=== PATIENT | female | born 1955 | race Caucasian/White ===

== ENCOUNTER 2021-08-28 22:59 | Emergency (ER) | payer BC, SELFPAY ==
--- NOTE | ~2021-08-28 | XR_ITS ---
EXAMINATION: XR CHEST CLINICAL INFORMATION: Syncope COMPARISON: 10/26/2018 TECHNIQUE: Frontal view of the chest was obtained. FINDINGS: Lung volumes are symmetric. No focal consolidation is seen. No evidence of pneumothorax, pleural effusion, or pulmonary edema. The cardiomediastinal contour is unremarkable. Calcification is present at the aortic arch. No acute osseous findings are seen. XR/XR chest 1V IMPRESSION: No acute cardiopulmonary findings.
--- NOTE | ~2021-08-28 | CT_ITS ---
EXAMINATION: CT HEAD WITHOUT CONTRAST CLINICAL INFORMATION: Fall COMPARISON: None TECHNIQUE: Contiguous axial imaging was performed from the skull base to vertex without intravenous administration of contrast. This CT examination was performed using dose optimization techniques as appropriate, variously including the following: *Automated exposure control *Adjustment of mA and/or kV according to patient size (this includes techniques or standardized protocols for targeted exams where dose is matched to indication/reason for exam; i.e. extremities or head) *Use of iterative reconstruction technique DLP: 754 mGy-cm FINDINGS: There is no evidence of acute intracranial hemorrhage or territorial infarction. No abnormal mass effect or midline shift is seen. Kennedy to white matter differentiation is well preserved. No extra-axial fluid collections are identified. The ventricles are normal in size. Hypoattenuating focus is present in the right bradley radiata. The osseous structures and soft tissues are normal. The mastoid air cells and visualized portions of the paranasal sinuses are well aerated. CT/CT head/brain wo con IMPRESSION: No acute intracranial hemorrhage. Hypoattenuating focus in the right bradley radiata is more suggestive of a chronic lacunar infarct; if clinically warranted, acuity may be better assessed with MRI.
[2021-08-29 00:16] VITALS: BP 137/75; PULSE 90; RESP 16; TEMP 36.6; O2SAT 98; BMI 29.5
--- NOTE | 2021-08-29 00:23 | ECG_ITS ---
Test Reason : SYNCOPE Blood Pressure : / mmHG Vent. Rate : 085 BPM Atrial Rate : 085 BPM P-R Int : 214 ms QRS Dur : 150 ms QT Int : 430 ms P-R-T Axes : 042 -67 018 degrees QTc Int : 511 ms Sinus rhythm with 1st degree A-V block Right bundle branch block Left anterior fascicular block Bifascicular block Abnormal ECG No previous ECGs available Referred By: Generic ED Physician Electronically Signed By:SCOTTIE RAMOS MD
--- NOTE | 2021-08-29 00:48 | ED.SYNCOPE ---
HPI - Syncope General Chief Complaint: Syncope Stated Complaint: Fell Hit Head 08/28/21 Time Seen by Provider: 08/29/21 00:30 Source: patient Mode of arrival: ambulatory Limitations: no limitations History of Present Illness HPI narrative: Patient comes to the emergency room complaining of a syncopal episode. Patient states that she remembers she was washing her hands at the kitchen before eating dinner, the next thing she remembers is her family waking her up, patient lying down in the couch. The family reported to the patient that patient was washing hands, fell to the ground, possibly hit her head. They picked her up from the ground and put on the couch. Patient states that she did not have any chest pain or shortness of breath prior pain patient states that she suspects that she had possibly vertigo before which has happened to her but not with syncopal episode. At this time, patient has no vertigo, no chest pain or shortness of breath, patient states she is asymptomatic. Patient denies headache or neck pain. Related Data Allergies Allergy/AdvReac Type Severity Reaction Status Date / Time No Known Allergies Allergy Unverified 08/29/21 00:22 [No Known Allergies*] Review of Systems Review of Systems: Constitutional : No Weight loss, No Fever, No Chills, No Night Sweats, No Fatigue, No Malaise ENT/Mouth : No Hearing loss, No Ear Pain, No Nasal Congestion, No Sinus Pain, No Hoarseness, No sore throat, No Rhinorrhea, No Swallowing Difficulty Eyes: No Eye Pain, No Swelling, No Redness, No Foreign Body, No Discharge, No Vision Changes Cardiovascular : No Chest Pain, No SOB, No Dyspnea on Exertion, No Orthopnea, No Edema, No Palpitations Respiratory : No Cough, No Sputum, No Wheezing, No Smoke Exposure, No Dyspnea Gastrointestinal : No Nausea, No Vomiting, No Diarrhea, No Constipation, No abdominal Pain, No Hematochezia, No Melena Genitourinary : no irregular bleeding, No Dysuria, No Urinary Frequency, No Hematuria, No Urinary Incontinence, No Urgency, No Flank Pain, No Urinary Flow Changes, No Hesitancy Musculoskeletal : No joint pain, No Myalgias, No Joint Swelling Skin : No Skin Lesions, No rash Neuro : No Weakness, No Numbness, No Paresthesias, complaining of syncopal episode, No Dizziness, No Headache Psych : No Anxiety/Panic, No Depression, No SI/HI/AH/VH, No Social Issues, Heme/Lymph: No Bruising, No Bleeding,No Lymphadenopathy Endocrine : No Polyuria, No Polydipsia, No Temperature Intolerance [facility] Past Medical History Medical History Diabetes Hypertension Vertigo Social History Social History Advance Directives: No Advance Directives Information Provided: No Physical Exam Vital Signs: Vital Signs: Last Vital Signs Temp 97.9 F 08/29/21 00:16 Pulse 74 08/29/21 02:20 Resp 18 08/29/21 02:20 BP 150/76 H 08/29/21 02:20 Pulse Ox 98 08/29/21 02:20 BMI result Body Mass Index 29.5 Const: Other: Appearance: Alert. Oriented X3. No acute distress. Eyes: Pupils equal, round and reactive to light. ENT: Pharynx normal. Neck: Normal inspection. Neck supple. No lymph nodes noted. No crepitus CVS: Normal heart rate and rhythm. Pulses normal. Normal S1 and S2 Respiratory: No respiratory distress. Breath sounds normal. No Wheezing. No rales Abdomen: Soft and nontender. No rigidity. No distention. good BS x4 Skin: Skin warm and dry. Normal skin color. Normal skin turgor. Extremities: No lower extremity edema.No Lacerations. No Rash Neuro: Oriented X 3. No motor deficit. No sensory deficit. Moving all extermities. No slurred speech. Course Course Course Narrative: Patient remains asymptomatic, no acute findings. Orthostatic vitals negative. I discussed the CT with the patient, patient will talk to her primary care doctor about getting an MRI if needed. Patient has no neurological deficits. To patient's knowledge she has never had a stroke. I also discussed with the patient that she will likely benefit from Holter monitoring and stress test. MDM - Syncope Lab Data Result diagrams: 08/29/21 00:46 08/29/21 00:46 Labs: Lab Results 08/29/21 08/29/21 08/29/21 Range/Units 00:46 00:46 00:46 WBC 7.0 (4.8-10.8) X10*3/uL RBC 3.85 L (4.20-5.50) X10*6/uL Hgb 11.3 L (12.0-16.0) g/dl Hct 35.6 L (37.0-47.0) % MCV 92.5 (80.0-98.0) fL MCH 29.4 (27.0-33.0) pg MCHC 31.7 (31.0-35.0) g/dl RDW 14.2 (11.0-16.0) % Plt Count 169 (160-400) X10*3/uL MPV 10.4 (9.4-12.3) fL Immature Gran % (Auto) 0.1 (0.0-0.4) % Neut % (Auto) 65.7 (45-73) % Lymph % (Auto) 24.7 (20-40) % [place] % (Auto) 6.5 (2-11) % Eos % (Auto) 2.6 (0-4) % Baso % (Auto) 0.4 (0-2) % Lymph # (Auto) 1.7 (1.2-4.9) X10*3/uL [place] # (Auto) 0.5 (0.1-1.2) X10*3/uL Eos # (Auto) 0.2 (0.0-0.4) X10*3/uL Baso # (Auto) 0.0 (0.0-0.2) X10*3/uL Abs Immat Gran (auto) 0.01 (0.00-0.03) X10*3/uL Absolute Neuts (auto) 4.6 (2.0-8.3) x10*3/uL Absolute Nucleated RBC 0.000 (0.0-0.012) X10*3/uL Nucleated RBC % (auto) 0.0 (0.0-0.2) /100WBC D-Dimer High Sensitivty NG/ML Sodium 141 (135-145) mmol/L Potassium 3.7 (3.3-5.1) mmol/L Chloride 104 (96-108) mmol/L Carbon Dioxide 28 (22-29) mmol/L Anion Gap 13 (12-20) BUN 28 H (9-16) mg/dL Creatinine 1.31 (0.5-1.4) mg/dL Estim Creat Clear Calc 37.4 Estimated GFR 41 Random Glucose 116 H (60-115) mg/dL Calcium 9.3 (8.4-10.2) mg/dL Troponin I High Sens 5.4 (<3.5-17.0) ng/L 08/29/21 Range/Units 00:47 WBC (4.8-10.8) X10*3/uL RBC (4.20-5.50) X10*6/uL Hgb (12.0-16.0) g/dl Hct (37.0-47.0) % MCV (80.0-98.0) fL MCH (27.0-33.0) pg MCHC (31.0-35.0) g/dl RDW (11.0-16.0) % Plt Count (160-400) X10*3/uL MPV (9.4-12.3) fL Immature Gran % (Auto) (0.0-0.4) % Neut % (Auto) (45-73) % Lymph % (Auto) (20-40) % [place] % (Auto) (2-11) % Eos % (Auto) (0-4) % Baso % (Auto) (0-2) % Lymph # (Auto) (1.2-4.9) X10*3/uL [place] # (Auto) (0.1-1.2) X10*3/uL Eos # (Auto) (0.0-0.4) X10*3/uL Baso # (Auto) (0.0-0.2) X10*3/uL Abs Immat Gran (auto) (0.00-0.03) X10*3/uL Absolute Neuts (auto) (2.0-8.3) x10*3/uL Absolute Nucleated RBC (0.0-0.012) X10*3/uL Nucleated RBC % (auto) (0.0-0.2) /100WBC D-Dimer High Sensitivty 204 NG/ML Sodium (135-145) mmol/L Potassium (3.3-5.1) mmol/L Chloride (96-108) mmol/L Carbon Dioxide (22-29) mmol/L Anion Gap (12-20) BUN (9-16) mg/dL Creatinine (0.5-1.4) mg/dL Estim Creat Clear Calc Estimated GFR Random Glucose (60-115) mg/dL Calcium (8.4-10.2) mg/dL Troponin I High Sens (<3.5-17.0) ng/L Imaging Data Head CT: Radiologist's impression: FINDINGS: There is no evidence of acute intracranial hemorrhage or territorial infarction. No abnormal mass effect or midline shift is seen. Kennedy to white matter differentiation is well preserved. No extra-axial fluid collections are identified. The ventricles are normal in size. Hypoattenuating focus is present in the right bradley radiata. The osseous structures and soft tissues are normal. The mastoid air cells and visualized portions of the paranasal sinuses are well aerated. ? CT/CT head/brain wo con IMPRESSION: No acute intracranial hemorrhage. Hypoattenuating focus in the right bradley radiata is more suggestive of a chronic lacunar infarct; if clinically warranted, acuity may be better assessed with MRI. Discharge Plan Discharge Clinical Impression: Syncope Patient Disposition: Home, Self-Care Instructions: Syncope (ED) Additional Instructions: Please follow-up with your primary care physician tomorrow. You may benefit from a referral for a stress test and Holter monitor. If you have any worsening or new symptoms, please return to the emergency room or call 911
[2021-08-29 00:51] LABS: MANUAL DIFF FLAG NO
[2021-08-29 00:53] LABS: Basophils Percent Auto 0.4 % (0-2); Eosinophils Absolute Auto 0.2 X10*3/uL (0.0-0.4); Eosinophils Percent Auto 2.6 % (0-4); Hematocrit 35.6 % (37.0-47.0); Hemoglobin 11.3 g/dl (12.0-16.0); Imm Gran Abs Auto 0.01 X10*3/uL (0.00-0.03); Imm Gran Pct Auto 0.1 % (0.0-0.4); Lymphocytes Absolute Auto 1.7 X10*3/uL (1.2-4.9); Lymphocytes Percent Auto 24.7 % (20-40); Mean Corpuscular HGB Conc 31.7 g/dl (31.0-35.0); Mean Corpuscular Hemoglobin 29.4 pg (27.0-33.0); Mean Corpuscular Volume 92.5 fL (80.0-98.0); Mean Platelet Volume 10.4 fL (9.4-12.3); Monocytes Absolute Auto 0.5 X10*3/uL (0.1-1.2); Monocytes Percent Auto 6.5 % (2-11); Neutrophils Absolute Auto 4.6 x10*3/uL (2.0-8.3); Neutrophils Percent Auto 65.7 % (45-73); Platelet Count 169 X10*3/uL (160-400); Red Blood Count 3.85 X10*6/uL (4.20-5.50); Red Cell Distribution Width 14.2 % (11.0-16.0)
[2021-08-29 00:56] VITALS: BP 149/84; BP 152/85; PULSE 78; PULSE 80
[2021-08-29 00:58] VITALS: BP 147/86; PULSE 82
[2021-08-29 00:59] VITALS: BP 147/86; PULSE 82; RESP 18; O2SAT 96
[2021-08-29 01:00] LABS: D Dimer High Sensitivity 204 NG/ML
[2021-08-29 01:13] LABS: Anion Gap 13 (12-20); Blood Urea Nitrogen 28 mg/dL (9-16); Calcium 9.3 mg/dL (8.4-10.2); Carbon Dioxide 28 mmol/L (22-29); Chloride 104 mmol/L (96-108); Creatinine Clr Calc Pharmacy 37.4; Estimated Glomerular Filt Rate 41; Glucose Random 116 mg/dL (60-115); Potassium 3.7 mmol/L (3.3-5.1); Sodium 141 mmol/L (135-145)
[2021-08-29 01:15] LABS: Troponin-I High Sensitivity 5.4 ng/L (<3.5-17.0)
[2021-08-29 02:20] VITALS: BP 150/76; PULSE 74; RESP 18; O2SAT 98
== END 2021-08-29 02:57 | disposition home or self-care (01) ==
PROVIDERS: Emergency Provider Emergency Medicine
DX: R55 Syncope and collapse (principal); Z79.899 Other long term (current) drug therapy
CPT/HCPCS: 36415; 70450; 71045; 80048; 84484; 85025; 85379; 93005; 99284

== ENCOUNTER 2023-08-11 08:54 | Emergency (ER) | payer OTHER, SELFPAY ==
--- NOTE | 2023-08-11 | ECG_ITS ---
Test Reason : SYNCOPE Blood Pressure : / mmHG Vent. Rate : 056 BPM Atrial Rate : 056 BPM P-R Int : 208 ms QRS Dur : 148 ms QT Int : 486 ms P-R-T Axes : 028 -52 020 degrees QTc Int : 468 ms Sinus bradycardia Right bundle branch block Left anterior fascicular block Bifascicular block Septal infarct , age undetermined Abnormal ECG When compared with ECG of 29-AUG-2021 00:37, Vent. rate has decreased BY 29 BPM Septal infarct is now Present Nonspecific T wave abnormality, worse in Anterior leads Referred By: Generic ED Physician Electronically Signed By:Iain Olson
--- NOTE | ~2023-08-11 | CT_ITS ---
EXAMINATION: CT HEAD WITHOUT CONTRAST CLINICAL INFORMATION: Right-sided head injury. Headache. COMPARISON: CT brain 08/29/2021 TECHNIQUE: Contiguous axial imaging was performed from the skull base to vertex without intravenous administration of contrast. This CT examination was performed using dose optimization techniques as appropriate, variously including the following: *Automated exposure control *Adjustment of mA and/or kV according to patient size (this includes techniques or standardized protocols for targeted exams where dose is matched to indication/reason for exam; i.e. extremities or head) *Use of iterative reconstruction technique DLP: 657 mGy-cm FINDINGS: There is no acute intra-axial, extra-axial bleed, masses or midline shift. There is no acute infarction evolution. There is no edema. There is a lacunar infarction of indeterminate age right anterior bradley radiata. The lateral ventricles are symmetrical in size and configuration without enlargement. Bone windows reveal no calvarial abnormality. There is no scalp soft tissue abnormality. Bilateral paranasal sinuses and mastoid air cells are well-aerated. CT/CT head/brain wo IV con IMPRESSION: No acute intracranial process seen. Small lacunar infarct right anterior bradley radiata. It is unchanged to the last CT brain 08/29/2021.
[2023-08-11 09:10] VITALS: BP 136/70; BP 138/78; PULSE 56; PULSE 66; RESP 18; TEMP 36.4; O2SAT 97; O2SAT 98; BMI 29.7
--- NOTE | 2023-08-11 09:25 | ED.SYNCOPE ---
HPI - Syncope General Chief Complaint: Syncope Stated Complaint: SYNCOPE FALL - THINNERS + CONTUSION Time Seen by Provider: 08/11/23 09:23 Source: patient, family and EMS Mode of arrival: EMS Limitations: no limitations History of Present Illness HPI narrative: 68-year-old female with a history of vertigo, hypertension, diabetes mellitus current pituitary tumor who presents emergency department for evaluation of room spinning dizziness and syncopal episode x2. Patient states that she got up this morning and got up from her bed to go to the bathroom. She states that the room started spinning and she felt nauseated. She tried to walk to the bathroom but when she opened the door she then passed out. She had a brief loss of consciousness. Her daughter try to get her to stand up but she had a 2nd syncopal episode an ambulance was called. Patient states that she did hit her head and is having pain on the right occipital parietal region of her head. She states she does have a history of vertigo and she felt her symptoms were consistent her previous vertigo symptoms. She denied fever, chills, chest pain, shortness of breath, nausea, vomiting or diarrhea. She has not noticed any dark tarry stools or bright red blood per rectum. Related Data Allergies Allergy/AdvReac Type Severity Reaction Status Date / Time No Known Allergies Allergy Unverified 08/29/21 00:22 [No Known Allergies*] Review of Systems Review of Systems: Yes all other systems are reviewed and are negative [facility] Past Medical History [facility] Narrative: Social history: Patient does smoke 1/2 pack of cigarettes per day x7 years. She denies alcohol use. She denies drug use. Her daughter, Delmi is here in the emergency department with her. Medical History Vertigo Hypertension Diabetes Social History Social History Advance Directives: No Advance Directives Information Provided: No Physical Exam Vital Signs: Vital Signs: Last Vital Signs Temp 97.8 F 08/11/23 10:46 Pulse 69 08/11/23 10:46 Resp 18 08/11/23 10:46 BP 125/68 08/11/23 10:46 Pulse Ox 97 08/11/23 10:48 O2 Del Method Room Air 08/11/23 10:48 BMI result Body Mass Index 29.7 Vital signs were normal Exam General: Awake, alert in no distress Head: Normocephalic, tenderness palpation of the right scalp with a small hematoma in the parietal septal region EENT: PERRL, patient does have lateral nystagmus, Lids normal, sclera normal, conjunctiva normal, nose normal , ears normal, throat without erythema or exudates Neck: Supple, no adenopathy, no trachea midline or C-spine tenderness Lung: breath sounds symmetric, no wheezing, rales or rhonchi Chest: symmetric movement, nontender Heart: regular rate and rhythm, normal S1, S2 no murmurs or rubs Abdomen: soft, non-tender, nondistended, normal bowel sounds Back: no vertebral tenderness, no CVAT Extremities: no deformities, moves all extremities symmetrically Neuro: Awake, alert, oriented, normal speech, cranial nerves intact, moves all extremities symmetrically Psych: Pleasant, cooperative Medications Administered Discontinued Medications Generic Name Dose Route Start Last Admin Trade Name Freq PRN Reason Stop Dose Admin Acetaminophen 975 mg 08/11/23 09:37 08/11/23 10:45 Acetaminophen 325 Mg Tablet PO 08/11/23 09:38 975 mg ONCE STA Administration Meclizine HCl 25 mg 08/11/23 09:37 08/11/23 10:44 Meclizine Hcl 25 Mg Tablet PO 08/11/23 09:38 25 mg ONCE STA Administration Medical Decision Making Medical Decision Making [facility] Narrative: 68-year-old female with a history of vertigo, hypertension, diabetes mellitus current pituitary tumor who presents emergency department for evaluation of room spinning dizziness and syncopal episode x2 with head injury and loss of consciousness. Examination did reveal lateral nystagmus as well as hematoma to her right parietal septal scalp. Following evaluation was ordered: CBC, CMP, troponin, EKG, urinalysis, CT scan of the head without IV contrast Patient was treated with Tylenol 975 mg orally and meclizine 25 mg orally 11:15 Patient is feeling better after the above treatment My interpretation patient's laboratory evaluation is as follows: Normocytic anemia with an H&H of 11.5 and 35.0-unchanged from baseline. Low platelet count [id number]. BUN elevated at 32 with a normal creatinine of 1.16-similar elevations BUN in the past. Urinalysis was negative. Troponin was below detectable limits. CT scan of the head revealed no acute fracture bleed Patient is feeling significantly better after the above treatment, patient's symptoms are consistent with her vertigo initial discharged home. Differential Diagnosis Differential Diagnoses: The differential diagnosis associated with the presentation includes Differential diagnosis includes was not limited to vertigo, stroke, myocardial ischemia, myocardial infarction, vertigo, electrolyte abnormalities, anemia Admission/Observation Consideration of admission/observation: Escalation of care including admission/observation considered Lab Data [facility] Lab Attestation statement: I reviewed the patient's lab results. See [facility] above for discussion 08/11/23 09:24 08/11/23 09:24 Labs: Lab Results 08/11/23 08/11/23 Range/Units 09:24 10:23 WBC 5.3 (4.8-10.8) X10*3/uL RBC 3.97 L (4.20-5.50) X10*6/uL Hgb 11.5 L (12.0-16.0) g/dl Hct 35.0 L (37.0-47.0) % MCV 88.2 (80.0-98.0) fL MCH 29.0 (27.0-33.0) pg MCHC 32.9 (31.0-35.0) g/dl RDW 14.4 (11.0-16.0) % Plt Count 147 L (160-400) X10*3/uL MPV 11.1 (9.4-12.3) fL Immature Gran % (Auto) 0.2 (0.0-0.4) % Neut % (Auto) 52.5 (45-73) % Lymph % (Auto) 34.7 (20-40) % [place] % (Auto) 6.5 (2-11) % Eos % (Auto) 5.3 H (0-4) % Baso % (Auto) 0.8 (0-2) % Lymph # (Auto) 1.8 (1.2-4.9) X10*3/uL [place] # (Auto) 0.3 (0.1-1.2) X10*3/uL Eos # (Auto) 0.3 (0.0-0.4) X10*3/uL Baso # (Auto) 0.0 (0.0-0.2) X10*3/uL Abs Immat Gran (auto) 0.01 (0.00-0.03) X10*3/uL Absolute Neuts (auto) 2.8 (2.0-8.3) x10*3/uL Absolute Nucleated RBC 0.000 (0.0-0.012) X10*3/uL Nucleated RBC % (auto) 0.0 (0.0-0.2) /100WBC Sodium 144 (135-145) mmol/L Potassium 3.4 (3.3-5.1) mmol/L Chloride 107 (96-108) mmol/L Carbon Dioxide 27 (22-29) mmol/L Anion Gap 13 (12-20) BUN 32 H (9-16) mg/dL Creatinine 1.16 (0.5-1.4) mg/dL Estim Creat Clear Calc 41.3 Estimated GFR 47 Random Glucose 99 (60-115) mg/dL Calcium 9.2 (8.4-10.2) mg/dL Total Bilirubin 0.3 (0.0-1.0) mg/dL AST 19 (5-31) U/L ALT 14 (0-31) U/L Alkaline Phosphatase 74 (39-117) U/L Troponin I High Sens < 2.7 (<3.5-17.0) ng/L Total Protein 7.1 (6.5-8.0) g/dL Albumin 3.9 (3.5-5.0) g/dL Urine Color Yellow Urine Appearance Clear Urine pH 6.0 (5.0-9.0) Ur Specific [place] 1.015 (1.005-1.025) Urine Protein Negative (Neg-Trace) mg/dL Urine Glucose (UA) Negative (Negative) mg/dL Urine Ketones Negative (Negative) mg/dL Urine Blood Negative (Negative) Urine Nitrite Negative (Negative) Ur Leukocyte Esterase Negative (Negative) Urine RBC 0-2 (0-2) /HPF Urine WBC 0-5 (0-5) /HPF Ur Squamous Epith Cells 0-2 (0-2) /HPF Urine Bacteria None Seen (None Seen) Hyaline Casts 0-2 (0-2) /LPF Independent Interpretation I performed an independent interpretation of an: EKG Interpretation: 12 EKG done at 09:40 hours was interpreted by me as follows: Sinus bradycardia with a rate of 56, prolonged DE interval 208 milliseconds consistent with a first-degree AV block, prolonged QRS duration of 148 milliseconds, normal QTC, right bundle-branch block, no ST segment elevation, no ST segment depression Radiology Impression Discussion of test interpretation with radiology: I have reviewed the radiologist's reading. Radiologist Impression: CT head/brain wo IV con IMPRESSION: No acute intracranial process seen. Small lacunar infarct right anterior bradley radiata. It is unchanged to the last CT brain 08/29/2021. Dictated By: Leonel Quinn MD Independent Historian Clinical information obtained from an independent historian. History obtained from or confirmed by: Other (Daughter) Chronic Conditions Patient?s care impacted by: Diabetes and Hypertension Discharge Plan Discharge Clinical Impression: Vertigo Syncope Qualifiers: Encounter type: initial encounter Closed head injury Qualifiers: Encounter type: initial encounter Qualified Code(s): S09.90XA - Unspecified injury of head, initial encounter Patient Disposition: Home, Self-Care Instructions: Vertigo (ED) Additional Instructions: Your blood work was unchanged from your previous blood work which is reassuring, nothing to explain his symptoms or passing out. The CT scan of your head revealed no skull fracture or bleeding in the brain. Your symptoms are consistent with vertigo. Take your meclizine as prescribed by your provider. Take your other medications as prescribed as well. Follow-up with your doctor in 2 days. Please return to the emergency department if your symptoms get worse or if you develop any symptoms that are concerning to you.
[2023-08-11 09:28] LABS: MANUAL DIFF FLAG NO
[2023-08-11 09:31] LABS: Basophils Percent Auto 0.8 % (0-2); Eosinophils Absolute Auto 0.3 X10*3/uL (0.0-0.4); Eosinophils Percent Auto 5.3 % (0-4); Hemoglobin 11.5 g/dl (12.0-16.0); Imm Gran Abs Auto 0.01 X10*3/uL (0.00-0.03); Imm Gran Pct Auto 0.2 % (0.0-0.4); Lymphocytes Absolute Auto 1.8 X10*3/uL (1.2-4.9); Lymphocytes Percent Auto 34.7 % (20-40); Mean Corpuscular HGB Conc 32.9 g/dl (31.0-35.0); Mean Corpuscular Volume 88.2 fL (80.0-98.0); Mean Platelet Volume 11.1 fL (9.4-12.3); Monocytes Absolute Auto 0.3 X10*3/uL (0.1-1.2); Monocytes Percent Auto 6.5 % (2-11); Neutrophils Absolute Auto 2.8 x10*3/uL (2.0-8.3); Neutrophils Percent Auto 52.5 % (45-73); Platelet Count 147 X10*3/uL (160-400); Red Blood Count 3.97 X10*6/uL (4.20-5.50); Red Cell Distribution Width 14.4 % (11.0-16.0); White Blood Count 5.3 X10*3/uL (4.8-10.8)
[2023-08-11 09:45] LABS: Alanine Aminotransferase 14 U/L (0-31); Albumin Level 3.9 g/dL (3.5-5.0); Alkaline Phosphatase 74 U/L (39-117); Anion Gap 13 (12-20); Aspartate Amino Transferase 19 U/L (5-31); Bilirubin Total 0.3 mg/dL (0.0-1.0); Blood Urea Nitrogen 32 mg/dL (9-16); Calcium 9.2 mg/dL (8.4-10.2); Carbon Dioxide 27 mmol/L (22-29); Chloride 107 mmol/L (96-108); Creatinine Clr Calc Pharmacy 41.3; Estimated Glomerular Filt Rate 47; Glucose Random 99 mg/dL (60-115); Potassium 3.4 mmol/L (3.3-5.1); Sodium 144 mmol/L (135-145); Total Protein 7.1 g/dL (6.5-8.0)
--- NOTE | 2023-08-11 09:52 | PC.NURSE ---
patient sat at edge of bed, denied dizziness. brought to bathroom via wheelchair. able to ambulate with steady gait continuing to deny any dizziness at this time
[2023-08-11 09:54] LABS: Troponin-I High Sensitivity < 2.7 ng/L (<3.5-17.0)
[2023-08-11 10:29] LABS: Appearance Urine Clear; Color Urine Yellow; Glucose Urine UA Negative (Negative); Leukocyte Esterase Urine Negative (Negative); Nitrite Urine Negative (Negative); Specific Gravity - Urine 1.015 (1.005-1.025); Urine Blood Negative (Negative); Urine Ketones Negative (Negative); Urine Protein Negative (Neg-Trace)
[2023-08-11 10:31] LABS: Bacteria Urine None Seen (None Seen); Hyaline Casts Urine 0-2 /LPF (0-2); RBC Urine 0-2 /HPF (0-2); Squamous Epithelial Cell Urine 0-2 /HPF (0-2); WBC Urine 0-5 /HPF (0-5)
[2023-08-11] MEDS: Meclizine HCl 25 MG TABLET PO (10:44)
[2023-08-11] MEDS: Acetaminophen 325 MG TABLET 975 MG PO (10:45)
[2023-08-11 10:46] VITALS: BP 125/68; PULSE 69; RESP 18; TEMP 36.6; O2SAT 97
[2023-08-11 10:48] VITALS: O2SAT 97
== END 2023-08-11 12:13 | disposition home or self-care (01) ==
PROVIDERS: Emergency Provider Emergency Medicine Emergency Medical Services; PCP Family Medicine
DX: R55 Syncope and collapse (principal); R51.9 Headache, unspecified; I45.10 Unspecified right bundle-branch block; F17.210 Nicotine dependence, cigarettes, uncomplicated; Z71.6 Tobacco abuse counseling; Z79.899 Other long term (current) drug therapy
CPT/HCPCS: 36415; 70450; 80053; 81001; 84484; 85025; 93005; 99284; 99285

== ENCOUNTER → 2023-08-11 09:40 | Outpatient (BNV) | payer OTHER, SELFPAY | PROVIDERS: Emergency Provider Emergency Medicine Emergency Medical Services; PCP Family Medicine; Visit Provider Internal Medicine Cardiovascular Disease | DX: R55 Syncope and collapse (principal) | CPT/HCPCS: 93010 ==

== ENCOUNTER 2024-03-12 07:26 | Emergency (ER) | payer MEDICARE, OTHER, SELFPAY ==
--- NOTE | ~2024-03-12 | XR_ITS ---
EXAMINATION: XR LUMBOSACRAL SPINE CLINICAL INFORMATION: Low back pain COMPARISON: MRI from 08/06/2018 TECHNIQUE: Three views of the lumbosacral spine. FINDINGS: Vertebral bodies are well aligned and intervertebral discs are preserved, except of grade 1 anterior listhesis of L4 over L5 and facets arthropathy seen at the level of L4-L5 and L5-S1. Pedicles are preserved. There are 5 not ribs bearing vertebral bodies. Soft tissues are unremarkable. There are mild degenerative changes of sacroiliac joints. XR/XR lumbar spine 2-3V IMPRESSION: Grade 1 anterior listhesis of L4 over L5 and facets arthropathy
[2024-03-12 07:33] VITALS: BP 137/73; PULSE 62; RESP 16; TEMP 36; O2SAT 99; BMI 29.5
--- NOTE | 2024-03-12 08:50 | ED_ITS ---
HPI - Back Pain/Injury General Chief Complaint: Back Pain/Injury Stated Complaint: back pain, numbness in legs Time Seen by Provider: 03/12/24 08:42 Source: patient Mode of arrival: ambulatory Limitations: no limitations History of Present Illness HPI Narrative: 69-year-old female with acute on chronic right-sided back pain with radiation down the right leg history of sciatica has gotten injections in her back in the past denies any falls or injuries denies lifting anything she eats pains past several days she take 1 dose of baclofen which she has baseline for her pain without resolution of her symptoms she has not tried any Tylenol ibuprofen she has fevers legs no IV drug use she has not lost control of her bowel or bladder she is able to ambulate at home Related Data Allergies Allergy/AdvReac Type Severity Reaction Status Date / Time No Known Allergies Allergy Verified 03/12/24 07:37 [No Known Allergies*] Review of Systems Review of Systems: Review of systems: General: Patient denies any fever chills recent illness or falls Musculoskeletal: Right lower back pain denies any or body aches or other injuries HEENT: denies headache, runny nose, ear pain Respiratory: denies shortness of breath, cough Cardiovascular: no chest pain or palpitations : denies dysuria, frequency Abdomen: no nausea vomiting denies abdominal pain Extremities: no swelling, no pain Skin: no diaphoresis Yes all other systems are reviewed and are negative PMFSH Past Medical History Medical History Vertigo Hypertension Diabetes Social History Social History Advance Directives: No Advance Directives Information Provided: Yes Do you have a plan to hurt others: No Plan Physical Exam Vital Signs: Vital Signs: Last Vital Signs Temp 96.8 F 03/12/24 07:33 Pulse 62 03/12/24 07:33 Resp 16 03/12/24 07:33 BP 137/73 03/12/24 07:33 Pulse Ox 99 03/12/24 07:33 O2 Del Method Room Air 03/12/24 07:33 BMI result Body Mass Index 29.5 General: Well-appearing well-nourished in no signs of distress HEENT: Normocephalic atraumatic Neck: No signs of JVD, no masses no tenderness or lymphadenopathy Cardiovascular: Regular rate and rhythm Respiratory: Clear to auscultation bilaterally Abdomen: Soft nontender no masses Extremities: Normal pedal pulses no signs of edema Skin: Dry warm no rashes Back: No tenderness full ROM negative straight leg test no pain to palpation anywhere in the background SI joint normal reflexes bilateral lower extremities Medical Decision Making Medical Decision Making [facility] Narrative: I think the patient looks well has normal strength I do not think this is acute neurosurgical issue x-rays were ordered in triage disappointed that she was not getting back injections explain that something do here in the ER and she thought follow-up with a specialist I have do feel the patient is safe to go home Differential Diagnosis Differential Diagnoses: The differential diagnosis associated with the presentation includes Sciatica back strain sacroiliitis Discharge Plan Discharge Clinical Impression: Strain of lumbar region, Lumbar radiculopathy Patient Disposition: Home, Self-Care Instructions: Acute Low Back Pain (ED), Core Strengthening Exercises (ED) Additional Instructions: You were seen today in the emergency department for back pain. You had an x-ray done you start prednisone and Tylenol. Please call follow-up with your doctor if you have any worsening concerns please return to the emergency department Referrals: Nicholas Bustamante MD [Primary Care Provider] - (Please call follow-up for back pain.) Print Language: Welsh
[2024-03-12 09:00] VITALS: BP 156/72; PULSE 55; RESP 14; TEMP 36.6; O2SAT 98
[2024-03-12] MEDS: predniSONE 20 MG TABLET 60 MG PO (09:19)
[2024-03-12 09:24] VITALS: BP 156/72; PULSE 55; RESP 14; TEMP 36.6; O2SAT 98
== END 2024-03-12 09:25 | disposition home or self-care (01) ==
PROVIDERS: Emergency Provider Student in an Organized Health Care Education/Training Program; PCP Family Medicine
DX: M54.16 Radiculopathy, lumbar region (principal); S39.012A Strain of muscle, fascia and tendon of lower back, initial encounter; X58.XXXA Exposure to other specified factors, initial encounter; I10 Essential (primary) hypertension; E11.8 Type 2 diabetes mellitus with unspecified complications; Z79.84 Long term (current) use of oral hypoglycemic drugs; Y93.9 Activity, unspecified; Y92.9 Unspecified place or not applicable; Y99.9 Unspecified external cause status
CPT/HCPCS: 72100; 99283

== ENCOUNTER 2024-05-21 10:09 | Outpatient (REF) | payer MEDICARE, OTHER, SELFPAY ==
--- NOTE | ~2024-05-21 | MR_ITS ---
EXAMINATION: MR BRAIN PITUITARY PROTOCOL WITHOUT AND WITH CONTRAST CLINICAL INFORMATION: Pituitary tumor. Follow-up. Headache. Blurred vision. COMPARISON: MRI from an outside examinations are not available on PACS TECHNIQUE: Multiplanar, multisequence MRI of the brain and sellar/suprasellar region was obtained before and after the intravenous administration of 3.5 mL of gadolinium (Gadavist) without reported immediate complications.. FINDINGS: Postsurgical/treatment changes likely related to a transphenoidal resection. There is heterogeneous enhancing isointense T1 slightly hyperintense T2 signal abnormality to both sides of the cerebellar and suprasellar region. There is slight extension into the medial right cavernous sinus. The flow void signal within the cavernous and supraclinoid segments both ICA is normal. 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 The optic chiasm is intact without signal abnormality. The cisternal segments of the optic nerves demonstrate no signal abnormality. No restricted diffusion. No acute intracranial hemorrhage, mass effect, midline shift, hydrocephalus or herniation. Kennedy-white matter differentiation is normal. 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 Multifocal old lacunar infarcts in the centrum semiovale and bradley radiata. Bilateral multifocal patchy and punctate deep periventricular white matter hyperintense T2 FLAIR signal involving centrum semiovale and bradley radiata. Flow-void signal within the main cerebral vessels is normal. Posterior cranial fossa contents demonstrated no acute intracranial hemorrhage or mass effect. 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 Small vessel occlusive disease. No acute stroke/ischemia Electronically signed by: Mehul Beltran MD 06/25/2024 03:52 PM EDT
[2024-05-21] MEDS: gadobutroL 2 ML VIAL IVPUSH ×2 (11:03→11:04)
== END 2024-05-21 10:10 | disposition home or self-care (01) ==
LOC: HO.MRI 10:09
PROVIDERS: PCP Family Medicine; Visit Provider Psychiatry & Neurology Neurology
DX: D35.2 Benign neoplasm of pituitary gland (principal)
CPT/HCPCS: 70553; A9585

== ENCOUNTER → 2024-05-21 10:20 | Outpatient (BNV) | payer MEDICARE, SELFPAY | PROVIDERS: PCP Family Medicine; Visit Provider Radiology Diagnostic Radiology | DX: R51.9 Headache, unspecified (principal) | CPT/HCPCS: 70553 ==

== ENCOUNTER 2025-03-13 08:56 | Outpatient (AMB) | payer MEDICARE, MEDICAID, SELFPAY ==
--- OUTSIDE RECORDS SUMMARY | 2025-03-13 09:15 | XMS_ITS | Clinical Summary ---
Author Organization [address] Address [address] [place] [phone] Phone Care Team Providers Care Medical Record Coder Name Role Phone Nicholas Bustamante MD Primary Care Pr ovider Allergies No known active allergies Medications cabergoline (DOSTINEX) 0.5 mg tablet Take 1 tablet (0.5 mg total) by mouth 1 (one) time per week. 4 Active blood sugar diagnostic (FreeStyle Lite Strips) test strip Apply 1 Strip topically every morning (before breakfast). 4 Active blood-glucose meter kit BLOOD GLUCOSE MONITORING SUPPL (FREESTYLE LITE) W/DEVICE KIT 1 Kit by Does not apply route every morning (before breakfast). 4 Active ascorbic acid, vitamin C, 500 mg capsule Take 500 mg by mouth daily. Active FREESTYLE LANCETS MISC Active aspirin 81 mg EC tablet TAKE 1 TABLET BY MOUTH 1 TIME EACH DAY. 90 tablet 2 5 Active sertraline (ZOLOFT) 100 mg tablet Take 1 tablet (100 mg total) by mouth 1 (one) time each day. 90 each 1 5 Active promethazine (PHENERGAN) 25 mg tabletIndicatio ns:Pituitary adenoma (CMS/HCC V24, CMS/HCC V28) Take 1 tablet (25 mg total) by mouth 1 (one) time per week. 30 tablet 5 Active pantoprazole (PROTONIX) 40 mg EC tablet Take 1 tablet (40 mg total) by mouth 1 (one) time each day. Do not crush, chew, or split. 90 each 1 5 Active lisinopril (PRINIVIL,ZESTR IL) 40 mg tablet Take 1 tablet (40 mg total) by mouth 1 (one) time each day. 90 each 1 5 Active folic acid (FOLVITE) 400 mcg tablet Take 1 tablet (400 mcg total) by mouth 1 (one) time each day. 90 each 1 5 Active cholecalciferol (VITAMIN D-3) 25 mcg (1,000 unit) capsule Take 1 capsule (1,000 Units total) by mouth 1 (one) time each day. 90 capsule 1 5 Active baclofen (LIORESAL) 10 mg tablet Take 1 tablet (10 mg total) by mouth 3 (three) times a day. 270 each 1 5 Active atorvastatin (LIPITOR) 40 mg tablet Take 1 tablet (40 mg total) by mouth at bedtime. 90 each 1 5 Active meclizine (ANTIVERT) 12.5 mg tablet TAKE 1 TABLET (12.5 MG TOTAL) BY MOUTH IF NEEDED FOR DIZZINESS OR NAUSEA. 30 tablet 2 5 Active omega-3 acid ethyl esters (LOVAZA) 1 gram capsule Take 1,000 mg by mouth daily. 90 capsule 1 5 Active amLODIPine (NORVASC) 10 mg tablet TAKE 1 TABLET BY MOUTH 1 TIME EACH DAY. 90 tablet 1 5 Active allopurinoL (ZYLOPRIM) 100 mg tablet TAKE 1 TABLET BY MOUTH 1 TIME EACH DAY. 90 tablet 1 5 Active Active Problems Problem Noted Date Diagnosed Date History of CVA (cerebrovascular accident) 2024 Type 2 diabetes mellitus wit h peripheral neuropathy ([facility] V24, [facility] V28) 05/30/2024 Pituitary adenoma ([facility] V24, [facility] V28) 10/2023 Overview (05/30/2024): Last Assessment & Plan: I reviewed this information in detail with Ms. Tolliver using a brain model. She has known about the pituitary tumor for 40 years and has never had symptoms of hormonal dysfunction. Her report now is of occasional blurry vision when reading but her acid tank liner states that her reading glasses are the correct prescription. She has no compression of the optic chiasm, no loss of visual field and her eye movements are intact indicating that there is no adverse effect of the extension of tumor into the cavernous sinuses. At this point, there is no role for surgery and she will continue to monitor her eye minutes and vision. We will contact [facility] for prior MRI reports and we will plan on repeating her scan in 1 year for comparison. Hypertension 05/30/2024 Lumbar back pain 05/30/2024 Overview (05/30/2024): Workrelated injury, on disability for DJD Gout 05/30/2024 Anxiety and depression 05/30/2024 Tobacco use disorder, mild, in early remission 1 Bilateral carpal tunnel syndrome 05/30/2024 Obesity 05/30/2024 Arthritis of hand 05/30/2024 Mixed hyperlipidemia 05/26/2023 Vitamin D deficiency 05/26/2023 Gastroesophageal reflux disease without esophagi tis 05/26/2023 Vertigo 05/26/2023 Diabetes mellitus with nephr opathy ([facility] V24, [facility] V28) 05/17/2017 Overview (05/30/2024): Microalbuminuria CKD stage 3b, GFR 30-44 ml/min ([facility] V24, [facility] V28) 05/17/2017 Encounters Date Type Department Care Team Description 01/22/2025 Telephone Adult Medicine [address] [phone] Terri Galindo MA RX request from Last 3 Months Immunizations Name Administration Dates Next Due Influenza Quadravalent, 0.5m l (Fluzone High-dose) 65yo and older 05/29/2024 Influenza Quadravalent, MDCK , 0.5ml, with preservative (Flucelvax) 6mo and older 05/15/2017 Influenza trivalent, 0.5mL ( Fluzone High-dose) 65yo and older 05/26/2023 Moderna SARS-CoV-2 COVID-19, mRNA, LNP-S, preservative free 03/01/2024 [employer] Covid-19 Bivalent, Or iginal + Ba.1 (Non-US Trademark [employer] Bivalent) 08/15/2022 Pfizer SARS-CoV-2 COVID-19, mRNA, LNP-S, preservative free 12/13/2021,06/12/2021,12/09/2020,2020 Pneumococcal conjugate 20 va lent (Prevnar 20, PCV 20) 2mo and older 05/26/2023 Tdap Tetanus diptheria acell ular pertussis (Boostrix; Adacel) 7yo and older 05/26/2023 Zoster recombinant (Shingrix ) 19yo and older 06/04/2023 Surgical History Surgery Date Site/Laterality Comments TOTAL KNEE ARTHROPLASTY 2009 Bilateral PROCEDURE: [place] ARTHRP KNE CONDYLE&PLATU MEDIAL&LAT COMPARTMENTS Medical History Medical History Date Comments Type 2 diabetes mellitus wit h peripheral neuropathy ([facility] V24, [facility] V28) DX:Type 2 diabetes mellitus with peripheral neuropathy (HCC) Pituitary adenoma ([facility] V 24, [facility] V28) DX:Pituitary adenoma (HCC) Hypertension DX:Hypertension Lumbar back pain DX:Lumbar back pain; COMMENT: Workrelated injury, on disability for DJD Gout DX:Gout Depression DX:Depression Diabetes mellitus with nephr opathy ([facility] V24, [facility] V28) 05/17/2017 DX:Diabetes mellitus with n ephropathy ([facility]); COMMENT: Microalbuminuria Chronic renal insufficiency, stage I 05/17/2017 DX:Chronic renal insufficiency, stage I Family History Medical History Relation Name Comments Coronary artery disease Father HI Breast cancer Mother Coronary artery disease Sister 1 HI Arthritis Sister 2 Hands Relation Name Status Comments Father Mother Sister 1 Sister 2 Alive Social History Tobacco Use Types Packs/Day Years Used Date Smoking Tobacco: Every Day Cigarettes Smokeless Tobacco: Current Tobacco Cessation:Ready to Q uit: Not Asked; Counseling Given: Not Answered Alcohol Use Standard Drinks/Week Comments No 0 (1 standard drink = 0.6 oz pur e alcohol) Comments Unknown Sex and Gender Information Value Date Recorded Sex Assigned at Not on file Legal Sex Female 5:08 PM EST Gender Identity Not on file Sexual Orientation Not on file Obstetrics History Last Filed Vital Signs Vital Sign Reading Time Taken Comments Blood Pressure 137/73 11/07/2024 10:26 AM EDT Pulse 56 10/10/2024 1:43 PM EST Temperature 36.2 C (97.2 F) 11/07/2024 10:26 AM EDT Respiratory Rate 14 11/07/2024 10:26 AM EDT Oxygen Saturation 98% 11/07/2024 10:26 AM EDT Inhaled Oxygen Concentration - - Weight 73 kg (161 lb) 11/07/2024 10:26 AM EDT Height 152.4 cm (5') 11/07/2024 10:26 AM EDT Body Mass Index 31.44 11/07/2024 10:26 AM EDT Plan of Treatment Upcoming Encounters Date Type Department Care Team (Late st Contact Info) Description 03/13/2025 11:00 AM EDT Office Visit [facility] Medicine [place] - [address] [phone] Nicholas Bustamante MD [address] [place] [address] 05/06/2025 9:30 AM EDT Office Visit Endocrinology - [address] [phone] Jaylene Magaña PA [address] [place] [phone] 06/12/2025 1:45 PM EDT Office Visit Nephrology - [address] [phone] Beto Gonzalez MD [address] [place] [phone] Health Maintenance Due Date Last Done Comments Social Influencers of Health Screening 10/01/2023 Diabetes: Annual Retina Eye Exam 08/03/2024 08/03/2023 Depression Screening 08/28/2024 Diabetes: Annual Foot Exam 09/25/2024 09/25/2023 Falls Risk Assessment 09/25/2024 09/25/2023 Medicare Annual Wellness Visit 09/25/2024 09/25/2023 Diabetes: Blood Sugar Control Test (HGBA1C) 10/12/2024 04/11/2024, 04/11/2024, 12/22/2023 COVID-19 Vaccine (8 - Pfizer risk season) 2025 10/17/2024, 03/01/2024, 06/04/2023, Additional history exists Influenza Vaccine (#1) 2025 , 05/26/2023, 06/02/2019, Additional history exists Diabetes: Annual Urine Albumin-Creatinine Ratio (uACR) 10/10/2025 10/10/2024, 12/28/2023, 05/04/2018 Diabetes: Annual GFR (Glomerular Filtration Rate) 10/10/2025 10/10/2024, 05/29/2024, 05/06/2024, Additional history exists Hypertension/CHF/CAD Annual BMP Blood Test 10/10/2025 10/10/2024, 05/29/2024, 05/06/2024, Additional history exists Breast Cancer Screening 09/27/2026 09/27/2024, 09/14 Cholesterol Screening (Lipid Panel) 06/04/2029 06/04/2024, 05/26/2023, 05/04/2018 Colorectal Cancer Screening: Colonoscopy 12/31/2031 12/30/2021 DTaP,Tdap,and Td Vaccines (4 - Td or Tdap) 05/26/2033 05/26/2023, 06/02/2014, 01/20/2004 Osteoporosis Screening (Bone Density Screening) 09/14/2033 09/14/2023 MMR Vaccines Aged Out 01/20/2004 No longer eligi ble based on patient's age to complete this topic Hepatitis B Vaccines Aged Out 08/02/2004, 04/29/2004, 01/23/2004 No longer eligible based on patient's age to complete this topic Hepatitis C Screening Completed 05/26/2023 Pneumococcal Vaccine: 50+ Years Completed 05/26/2023, 11/23/2017 Zoster Vaccines Completed 06/04/2023, 01/27, 11/23/2017 RSV Immunization Adult Patients Completed 06/02/2024 HIB Vaccines Aged Out No longer eligi ble based on patient's age to complete this topic HPV Vaccines Aged Out No longer eligi ble based on patient's age to complete this topic Hepatitis A Vaccines Aged Out No long er eligible based on patient's age to complete this topic IPV Vaccines Aged Out No longer eligi ble based on patient's age to complete this topic Meningococcal ACWY Vaccine Aged Out N o longer eligible based on patient's age to complete this topic Meningococcal B Vaccine Aged Out No l onger eligible based on patient's age to complete this topic RSV Immunization Patients Under 20 months Aged Out No longer eligible based on patient's age to complete this topic Varicella Vaccines Aged Out No longer eligible based on patient's age to complete this topic Procedures Procedure Name Priority Date/Time Associated Diagnosis Comments MICROALBUMIN CREATININE URINE RATIO Routine 10/10/2024 2:21 PM EST Stage 3 chronic kidney disease, unspecified whether stage 3a or 3b CKD (CMS/HCC V24, CMS/HCC V28) BASIC METABOLIC PANEL Routine 10/10/2024 2:21 PM EST Stage 3 chronic kidney disease, unspecified whether stage 3a or 3b CKD (CMS/HCC V24, CMS/HCC V28) MG MAMMO DIGITAL SCREENING W INDRA BILAT Routine 09/27/2024 10:07 AM EST Encounter for screening mammogram for breast cancer HEMOGLOBIN A1C Routine 04/11/2024 FALLS RISK ASSESSMENT Routine 09/25/2023 DIABETES FOOT EXAM Routine 09/25/2023 DXA BONE DENSITY STUDY 1+ SITS AXIAL SKEL Routine 09/14/2023 3:42 PM EST Encounter for screening for osteoporosis DIABETES EYE EXAM Routine 08/03/2023 HEPATITIS C SCREENING Routine 05/26/2023 LIPID PANEL Routine 05/26/2023 HM COLONOSCOPY Routine 12/30/2021 from Last 3 Months or Most Recently Relevant to Health Maintenance Results * (ABNORMAL) Microalbumin creatinine urine ratio (10/10/2024 2:21 PM EST) Creatinine, Urine 268.0 mg/dL LAB CHEMISTRY METHOD 10/10/2024 5:39 PM EST [facility] Microalb, Ur 222.0(H) 0.0 - 29.0 mg/L LAB CHEMISTRY METHOD 10/10/2024 5:39 PM EST [facility] Microalb/Crea t Ratio 83(H) <30 mg/g creat LAB CHEMISTRY METHOD 10/10/2024 5:39 PM EST [facility] Urine Urine specimen obtained by clean catch procedure / Unknown Non-blood Collection / Unknown 10/10/2024 2:21 PM EST 10/10/2024 2:21 PM EST Beto Gonzalez MD LAB URINE ORDERABLES Final Res ult [facility] [address] [place] [address], * (ABNORMAL) Basic metabolic panel (10/10/2024 2:21 PM EST) Sodium 140 133 - 145 mmol/L LAB CHEMISTRY METHOD 10/10/2024 5:18 PM EST [facility] Potassium 3.4(L) 3.5 - 5.5 mmol/L LAB CHEMISTRY METHOD 10/10/2024 5:18 PM [facility] Chloride 104 96 - 110 mmol/L LAB CHEMISTRY METHOD 10/10/2024 5:18 PM EST [facility] CO2 32 21 - 32 mmol/L LAB CHEMISTRY METHOD 10/10/2024 5:18 PM [facility] Anion Gap 4 3 - 11 LAB CHEMISTRY METHOD 10/10/2024 5:18 PM [facility] Glucose 84 70 - 100 mg/dL LAB CHEMISTRY METHOD 10/10/2024 5:18 PM [facility] BUN 29(H) 5 - 25 mg/dL LAB CHEMISTRY METHOD 10/10/2024 5:18 PM [facility] Creatinine 1.17(H) 0.50 - 1.10 mg/dL LAB CHEMISTRY METHOD 10/10/2024 5:18 PM [facility] eGFR 51(L) >=60 mL/min/1. 73m2 LAB CHEMISTRY METHOD 10/10/2024 5:18 PM [facility] Comment:Calculation based on the Chronic Kidney Disease Epidemiology Collaboration (CKD-EPI) equation refit without adjustment for race. BUN/Creatinine Ratio 24.8 LAB CHEMISTRY METHOD 10/10/2024 5:18 PM [facility] Calcium 9.2 8.5 - 10.5 mg/dL LAB CHEMISTRY METHOD 10/10/2024 5:18 PM [facility] Blood Venous blood specimen / Unknown Venipuncture / Unknown 10/10/2024 2:21 PM EST 10/10/2024 2:21 PM EST Beto Gonzalez MD LAB BLOOD ORDERABLES Final Res ult [facility] [address] [place] [address], [place] [phone] * MG Mammo Digital Screening w Indra bilat (09/27/2024 10:07 AM EST) Anatomical Region Laterality Modality Breast Bilateral Mammography 09/27/2024 10:2 5 AM EST Impressions 09/27/2024 11:25 AM EST Benign. BI-RADS CATEGORY: 1 - NEGATIVE RECOMMENDATION: Screening bilateral mammogram is recommended in 1 year. Mammo Location: [facility], [address] [place] [address], [id number], . -------- FINAL REPORT -------- Dictated By: Alisha Collier Dictated Date: 09/27/2024 10:25 ET Assigned Physician: Alisha Collier Reviewed and Electronically Signed By: Alisha Collier Signed Date: 09/27/2024 11:25 ET Workstation ID: [id number] Transcribed By: Self Edit Transcribed Date: 09/27/2024 11:05 ET Narrative 09/27/2024 11:25 AM EST CLINICAL: 69 years old, Female, routine annual exam. COMPARISON: Mammograms dating back to 06/18/2018 with most recent of 09/14/2023. TECHNIQUE: Bilateral MLO and CC views were obtained digitally with 3-D mammogram (digital breast tomosynthesis). Computer-aided detection was utilized in evaluation of this exam (CAD). FINDINGS: There is no evidence of suspicious mass or architectural distortion. No worrisome calcifications are evident. There has been no significant change from prior exam(s). BREAST DENSITY: B - There are scattered areas of fibroglandular density. Procedure Note Alisha Collier MD - 09/27/2024 CLINICAL: 69 years old, Female, routine annual exam. COMPARISON: Mammograms dating back to 06/18/2018 with most recent of09/14/2023. TECHNIQUE: Bilateral MLO and CC views were obtained digitally with 3-Dmammogram (digital breast tomosynthesis). Computer-aided detection wasutilized in evaluation of this exam (CAD). FINDINGS: There is no evidence of suspicious mass or architectural distortion. Noworrisome calcifications are evident. There has been no significantchange from prior exam(s). BREAST DENSITY: B - There are scattered areas of fibroglandular density. IMPRESSION: Benign. BI-RADS CATEGORY: 1 - NEGATIVE RECOMMENDATION: Screening bilateral mammogram is recommended in 1 year. Mammo Location: [facility], [address] [place] [address], [id number], . -------- FINAL REPORT -------- Dictated By: Alisha Collier Dictated Date: 09/27/2024 10:25 ET Assigned Physician: Alisha Collier Reviewed and Electronically Signed By: Alisha Collier Signed Date: 09/27/2024 11:25 ET Workstation ID: [id number] Transcribed By: Self Edit Transcribed Date: 09/27/2024 11:05 ET Result [facility] Nicholas Bustamante MD IMG BI PROCEDURE S Final Result * Hemoglobin A1c (04/11/2024) Pathologist [facility] Hemoglobin A1C 5.9 <=6.5 % Blood Venous blood specimen / Unknown Result [facility] Historical Provider LAB BLOOD ORDERABLES Hilda l Result * Falls Risk Assessment (09/25/2023) Pathologist [facility] Falls Risk Assessment abstracted Historical Provider HEALTH MAINTENANCE Final Result * Diabetes Foot Exam (09/25/2023) Pathologist [facility] Diabetes: Annual Foot Exam abstracted Result [facility] Historical Provider HEALTH MAINTENANCE Final Result * DXA BONE DENSITY STUDY 1+ SITS AXIAL SKEL (09/14/2023 3:42 PM EST) Anatomical Region Laterality Modality Bone Densitometr y 05/26/2023 12:3 2 PM EDT Narrative 09/14/2023 6:09 PM EST STUDY: DUAL ENERGY X-RAY ABSORPTIOMETRY / DXA REASON FOR EXAM: Female, 68 years old other(see comments) TECHNIQUE: Bone Mineral Density (BMD) measurements of the lumbar spine and left hip were obtained using [employer] W (S/N [id number]). COMPARISON: None FINDINGS: L1-L4 BMD: 0.971 g/cm2 L1-L4 T score: -0.7. This corresponds to Normal bone density. Left femoral neck BMD: 0.878 g/cm2 Left femoral neck T score: 0.3. This corresponds to Normal bone density. Left total hip BMD: 1.022 g/cm2 Left total hip T score: 0.7. This corresponds to Normal bone density. IMPRESSION: IMPRESSION: Normal bone density Reference Information: The T-score is the number of standard deviations above or below the standard which is normal for young adults at their peak bone mineral density. The World Health Organization (WHO) interprets the T-scores as follows: At or above -1 SD Normal bone density Between -1 and -2.5 SD Osteopenia At or below -2.5 SD Osteoporosis Procedure Note Wilfrido Hilliard MD - 04/15/2024 STUDY: DUAL ENERGY X-RAY ABSORPTIOMETRY / DXA REASON FOR EXAM: Female, 68 years old other(see comments) TECHNIQUE: Bone Mineral Density (BMD) measurements of the lumbar spineand left hip were obtained using [employer] W (S/N [id number]). COMPARISON: None FINDINGS: L1-L4 BMD: 0.971 g/cm2 L1-L4 T score: -0.7. This corresponds to Normal bone density. Left femoral neck BMD: 0.878 g/cm2 Left femoral neck T score: 0.3. This corresponds to Normal bonedensity. Left total hip BMD: 1.022 g/cm2 Left total hip T score: 0.7. This corresponds to Normal bone density. IMPRESSION: IMPRESSION: Normal bone density Reference Information: The T-score is the number of standard deviations above or below thestandard which is normal for young adults at their peak bone mineral density. The World HealthOrganization (WHO) interprets the T-scores as follows: At or above -1 SD Normal bone density Between -1 and -2.5 SD Osteopenia At or below -2.5 SD Osteoporosis Nicholas Bustamante MD IMG DXA PROCEDUR ES Final Result * Diabetes Eye Exam (08/03/2023) [facility] Diabetes: Annual Retina Eye Exam abstracted Historical Provider HEALTH MAINTENANCE Final Result * Hepatitis C Screening (05/26/2023) [facility] Hepatitis C Screening abstracted Historical Provider HEALTH MAINTENANCE Final Result * Lipid panel (05/26/2023) [facility] LDL/HDL Ratio 2 0 - 4 Triglycerides 99 0 - 150 mg/dL Cholesterol 145 0 - 200 mg/dL HDL 62 >=40 mg/dL LDL Cholesterol 64 0 - 100 mg/dL Blood Venous blood specimen / Unknown Historical Provider LAB BLOOD ORDERABLES Hilda l Result * Colonoscopy (12/30/2021) [facility] Colonoscopy abstracted, no interpretation Anatomical Region Laterality Modality Other Historical Provider HEALTH MAINTENANCE Final Result from Last 3 Months or Most Recently Relevant to Health Maintenance Insurance MEDICARE [place]ICAID [place] [employer] Care Teams Medical Record Coder Relationship Specialty Start Date End Date Nicholas Bustamante MD [address] [place] [address] [phone] PCP - General 12/30/22
--- NOTE | 2025-03-13 10:02 | A.OFFVIS_ITS ---
Intake Visit Reasons: 3m Allergies No Known Allergies (No Known Allergies*) Allergy (Verified 03/12/24 07:37) Medication List - Last Reconciled 03/13/25 by Dirk Lund MD allopurinol 100 mg PO DAILY amlodipine 5 mg PO DAILY aspirin 81 mg PO DAILY atorvastatin 40 mg PO DAILY baclofen 10 mg PO TID cabergoline 0.25 mg PO QWEEK folic acid 0.4 mg PO DAILY lisinopril 40 mg PO DAILY pantoprazole 40 mg PO DAILY promethazine 25 mg PO QWEEK sertraline 100 mg PO DAILY HPI Comments Details: 70 yo RH woman with a pituitary lesion treated with cabergoline for a number of years, a right external capsular infarct noted on CT at [facility] in 2021, vertigo, and hand numbness.She is tolerating 0.5mg of cabergoline without problem. No new issues or stroke like symptoms. [facility] Medical History (Updated 03/13/25 @ 10:08 by Dirk Lund MD) Carpal tunnel syndrome, bilateral upper limbs Carpal tunnel syndrome Cerebral microvascular disease Cerebral infarction Vertigo Hypertension Diabetes Review of Systems Const Details: Constitutional:?No fever, chills, fatigue, weight loss, or night sweats. HEENT:?No headache, vision changes, hearing loss, nasal congestion, sore throat. Neurological:?No dizziness, syncope, seizures, numbness, tingling, weakness, tremors, memory loss. Psychiatric:?No anxiety, depression, mood swings, sleep disturbance, or hallucinations. Endocrine:?No heat/cold intolerance, polydipsia, polyuria, or hair/skin changes. Hematologic/Lymphatic:?No easy bruising, bleeding, or lymphadenopathy. Integumentary (Skin):?No rash, lesions, itching, or color changes. ? Physical Exam Neuro Other: Mental Status: Alert and oriented to person, place, and time. Normal attention. Normal spontaneous speech, fluency, and comprehension. No obvious issues with mood and memory. Affect is appropriate. Cranial Nerves: CN II: Visual nieves full to confrontation, visual acuity intact. CN III, IV, : Pupils equal, round, reactive to light and accommodation. Extraocular movements are normal. CN V: Facial sensation is normal. CN VII: Facial movements symmetrical. CN VIII: Hearing intact to bedside conversation is normal. CN IX, X: Palate elevates symmetrically. CN XI: Shoulder shrug and head turn symmetrical. CN XII: Tongue midline without atrophy or fasciculations. Extrapyramidal: Full facial expressions and blinking. No rigidity. Movements are appropriate with no tremor or abnormality. Speech: Normal; no dysarthria or tremor. Assessment & Plan Assessment & Plan (1) Pituitary adenoma: Comment: MRI brain WWO at [place] in Jun 2024: Stable pituitary lesion MRI brain WWO at [facility] in Apr 2024: Mod MVD, pituitary macroadenoma CT brain WO at [place] in December 2023: b/l basal ganglia area hypodensities, probably chronic infarctions MRI brain WWO at [place] in May 2023: 1.5 x 1.4 x 1.7 pituitary lesion with enhancement. EMG/NCS UEs at off in 2023: Mod L and mild to mod R CTS, L mid cervical rad CT brain WO at [facility] in 2021 and 2023: R ext cap area mod sized ischemic infarct. Code(s): D35.2 - Benign neoplasm of pituitary gland Category: Medical Plan Impression: a: Pituitary adenoma b: Cerebral infarction Rec: a: Prolactin level b: Cabergolin 0.5mg twice a week. Dose might be adjusted based upon prolactin level c: Baby aspirin daily c: Statin d: BP control Orders: Orders Prolactin Today D35.2 - Benign neoplasm of pituitary gland US carotid duplex BI Today I63.9 - Cerebral infarction, unspecified Coding Level of Care Code Est Pt Level 5 (09388) Diagnoses Pituitary adenoma D35.2
== END 2025-03-13 10:16 | disposition home or self-care (01) ==
LOC: HO.HSM 08:57
PROVIDERS: PCP Family Medicine; Visit Provider Psychiatry & Neurology Neurology
DX: D35.2 Benign neoplasm of pituitary gland (principal)
CPT/HCPCS: 99214

== ENCOUNTER → 2025-03-13 08:56 | Outpatient (BNVA) | payer MEDICARE, SELFPAY | PROVIDERS: PCP Family Medicine; Visit Provider Psychiatry & Neurology Neurology | DX: D35.2 Benign neoplasm of pituitary gland (principal); Z79.82 Long term (current) use of aspirin; Z79.899 Other long term (current) drug therapy | CPT/HCPCS: 99212 ==

== ENCOUNTER 2025-03-25 10:22 | Outpatient (REF) | payer MEDICARE, MEDICAID, SELFPAY ==
--- OUTSIDE RECORDS SUMMARY | 2025-03-25 11:19 | XMS_ITS | Clinical Summary ---
Author Organization [facility] [address] [facility] Address [address] [place] [address] Phone Care Team Providers Care Environmental Technical Officer Name Role Phone Nicholas Bustamante MD Primary [...] 1 5 Active promethazine (PHENERGAN) 25 mg tabletIndication s:Pituitary adenoma (CMS/HCC V24, CMS/HCC V28) Take 1 tablet (25 mg total) by mouth 1 (one) time per week. 30 tablet 5 Active pantoprazole (PROTONIX) 40 mg EC tablet Take 1 tablet (40 mg total) by mouth 1 (one) time each day. Do not crush, chew, or split. 90 each 1 5 Active folic acid [...] mouth daily. 90 capsule 1 5 Active allopurinoL (ZYLOPRIM) 100 mg tablet TAKE 1 TABLET BY MOUTH 1 TIME EACH DAY. 90 tablet 1 5 Active amLODIPine (NORVASC) 10 mg tabletIndication s:Primary hypertension Take 1 tablet (10 mg total) by mouth 1 (one) time each day. 90 tablet 1 5 Active lisinopril (PRINIVIL,ZESTRI L) 40 mg tabletIndication s:Primary hypertension Take 1 tablet (40 mg total) by mouth 1 (one) time each day. 90 each 1 5 Active spironolactone (Aldactone) 25 mg tabletIndication s:Primary hypertension Take 0.5 tablets (12.5 mg total) by mouth 1 (one) time each day. 15 each 5 025 Active potassium chloride (KLOR-CON M20) 20 mEq CR tabletIndication s:Hypokalemia Take 1 tablet (20 mEq total) by mouth 1 (one) time each day. Tablet may be swallowed whole (do not crush/chew/suc k on) OR broken in half and each half swallowed separately OR dissolved (whole tablet) in ~4 ounces of water (allow ~2 minutes to dissolve, stir well and administer immediately). 90 each 2 5 026 Active lisinopril (PRINIVIL,ZESTRI L) 40 mg tablet Take 1 tablet (40 mg total) by mouth 1 (one) time each day. 90 each 1 5 025 Discontin ued(Reord er) amLODIPine (NORVASC) 10 mg tablet TAKE 1 TABLET BY MOUTH 1 TIME EACH DAY. 90 tablet 1 5 025 Discontin ued(Reord er) Active Problems Problem Noted Date Diagnosed Date Hypokalemia 03/19/2025 History of CVA (cerebrovascular accident) 2024 Assessment & Plan (03/13/2025 12:00 PM EDT): Continue aspirin and atorvastatin 40 mg nightly She is strongly encouraged to quit tobacco use as this could increase her risk for having additional cardiovascular events. She was able to quit cold turkey on her own in the past. Advised to pick a quit date Type 2 diabetes mellitus wit h peripheral neuropathy ([facility] V24, [facility] V28) 05/30/2024 Assessment & Plan (03/13/2025 12:00 PM EDT): Well-controlled with lifestyle management. Due for A1c which is ordered Due for DM eye exam and is referred Orders: Hemoglobin A1c; Future Diabetes Foot Exam Ambulatory referral to Ophthalmology; Future Pituitary adenoma ([facility] V24, [facility] V28) 10/2023 Overview (05/30/2024): Last Assessment & Plan: I reviewed this information in detail with Ms. [place] using a brain model. She has known about the pituitary tumor for 40 years and has never had symptoms of hormonal dysfunction. 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 We will contact [facility] for prior MRI reports and we will plan on repeating her scan in 1 year for comparison. Hypertension 05/30/2024 Assessment & Plan (03/13/2025 12:00 PM EDT): Blood pressure today in the office is excellent but her average blood pressure readings at home have been in the 130s over 80s. Goal for CKD is less than 130/80 She has also had intermittent episodes of hypokalemia She will continue amlodipine and lisinopril. Will start spironolactone 12.5 mg daily. She will follow-up in 1 month with blood pressure log Orders: amLODIPine (NORVASC) 10 mg tablet; Take 1 tablet (10 mg total) by mouth 1 (one) time each day. lisinopril (PRINIVIL,ZESTRIL) 40 mg tablet; Take 1 tablet (40 mg total) by mouth 1 (one) time each day. spironolactone (Aldactone) 25 mg tablet; Take 0.5 tablets (12.5 mg total) by mouth 1 (one) time each day. Lumbar back pain 05/30/2024 Overview (05/30/2024): Workrelated injury, on disability for DJD Assessment & Plan (03/13/2025 12:00 PM EDT): Continue baclofen 10 mg 3 times daily and Tylenol as needed Gout 05/30/2024 Assessment & Plan (03/13/2025 12:00 PM EDT): Continue allopurinol 100 mg daily Orders: Uric acid; Future Anxiety and depression 05/30/2024 Assessment & Plan (03/13/2025 12:00 PM EDT): Continue sertraline 50 to 100 mg daily. See HPI Tobacco use disorder 05/30/2024 Assessment & Plan (03/13/2025 12:00 PM EDT): Tobacco cessation counseling is provided Bilateral carpal tunnel syndrome 05/30/2024 Obesity 05/30/2024 Arthritis of hand 05/30/2024 Assessment & Plan (03/13/2025 12:00 PM EDT): Continue baclofen 10 mg 3 times daily and Tylenol as needed Mixed hyperlipidemia 05/26/2023 Assessment & Plan (03/13/2025 12:00 PM EDT): Continue atorvastatin 40 mg nightly Orders: Lipid panel with reflex to direct LDL; Future Vitamin D deficiency 05/26/2023 Assessment & Plan (03/13/2025 12:00 PM EDT): Continue vitamin D daily Gastroesophageal reflux disease without esophagi tis 05/26/2023 Assessment & Plan (03/13/2025 12:00 PM EDT): Stable. Continue pantoprazole 40 mg daily Vertigo 05/26/2023 Diabetes mellitus with nephr opathy ([facility] V24, [facility] V28) 05/17/2017 Overview (05/30/2024): Microalbuminuria CKD stage 3b, GFR 30-44 ml/min ([facility] V24, [facility] V28) 05/17/2017 Assessment & Plan (03/13/2025 12:00 PM EDT): Due for updated labs which are ordered. Continue nephrology follow-up Orders: Comprehensive metabolic panel; Future Encounters Date Type Department Care Team Description 03/19/2025 Telephone Adult Medicine [address] [phone] Malia Menezes RN 03/13/2025 11:00 AM EDT Office Visit Adult Medicine [address] [phone] Nicholas Bustamante MD Primary hypertension (Primary Dx); CKD stage 3b, GFR 30-44 ml/min ([facility] V24, [facility] V28); Type 2 diabetes mellitus with peripheral neuropathy ([facility] V24, [facility] V28); History of CVA (cerebrovascular accident); Tobacco use disorder; Mixed hyperlipidemia; Gastroesophageal reflux disease without esophagitis; Anxiety and depression; Chronic gout without tophus, unspecified cause, unspecified site; Vitamin D deficiency; Lumbar back pain; Arthritis of right hand 01/22/2025 Telephone Adult Medicine [address] [phone] [place] request from Last 3 Months Immunizations Name Administration Dates Next Due Influenza Quadravalent, 0.5m l (Fluzone High-dose) 65yo and older 05/29/2024 Influenza Quadravalent, MDCK , 0.5ml, with preservative (Flucelvax) 6mo and older 05/15/2017 Influenza trivalent, 0.5mL ( Fluzone High-dose) 65yo and older 05/26/2023 Moderna SARS-CoV-2 COVID-19, mRNA, LNP-S, preservative free 03/01/2024 SmartCrowdz Covid-19 Bivalent, Or iginal + Ba.1 (Non-US Trademark [employer]Mixer Bivalent) 08/15/2022 [employer]Crowdz SARS-CoV-2 COVID-19, mRNA, LNP-S, preservative free 12/13/2021,06/12/2021,12/09/2020,2020 Pneumococcal conjugate 20 va lent (Prevnar 20, PCV 20) 2mo and older 05/26/2023 Tdap Tetanus diptheria acell ular pertussis (Boostrix; Adacel) 7yo and older 05/26/2023 Zoster recombinant (Shingrix ) 19yo and older 06/04/2023 Surgical History Surgery Date Site/Laterality Comments TOTAL KNEE ARTHROPLASTY 2009 Bilateral PROCEDURE: CA ARTHRP KNE CONDYLE&PLATU MEDIAL&LAT COMPARTMENTS Medical History Medical History Date Comments Type 2 diabetes mellitus wit h peripheral neuropathy ([facility] V24, [facility] V28) DX:Type 2 diabetes mellitus with peripheral neuropathy (HCC) Pituitary adenoma ([facility] V 24, [facility] V28) DX:Pituitary adenoma ([facility]) Hypertension DX:Hypertension Lumbar back pain DX:Lumbar back pain; COMMENT: Workrelated injury, on disability for DJD Gout DX:Gout Depression DX:Depression Diabetes mellitus with nephr opathy ([facility] V24, [facility] V28) 05/17/2017 DX:Diabetes mellitus with n ephropathy ([facility]); COMMENT: Microalbuminuria Chronic renal insufficiency, stage I 05/17/2017 DX:Chronic renal insufficiency, stage I Family History Medical History Relation Name Comments Coronary artery disease Father [place] Breast cancer Mother Coronary artery disease Sister 1 [place] Arthritis Sister 2 Hands Relation Name Status [...] Sign Reading Time Taken Comments Blood Pressure 126/69 03/13/2025 10:57 AM EDT Pulse 56 03/13/2025 10:57 AM EDT Temperature 36 C (96.8 F) 03/13/2025 10:57 AM EDT Respiratory Rate 16 03/13/2025 10:57 AM EDT Oxygen Saturation 98% 11/07/2024 10:26 AM EDT Inhaled Oxygen Concentration - - Weight 73.9 kg (163 lb) 03/13/2025 10:57 AM EDT Height 152.4 cm (5') 11/07/2024 10:26 AM EDT Body Mass Index 31.83 11/07/2024 10:26 AM EDT Plan of Treatment Upcoming Encounters Date Type Department Care Team (Late st Contact Info) Description 04/10/2025 1:30 PM EDT Office Visit Adult Medicine [address] [phone] Nicholas Bustamante MD [address] [place] [address] [phone] 05/06/2025 9:30 AM EDT Office Visit Endocrinology - [place] [address] [place], [place] [phone] Jaylene Magaña PA [address] [place] [address] 06/12/2025 1:45 PM EDT Office Visit Nephrology - [place] [id number] [place], [place] [phone] Beto Gonzalez MD [address] [phone] Health Maintenance Due Date Last Done Comments Social Influencers of Health Screening 10/01/2023 Diabetes: Annual Retina Eye Exam 08/03/2024 08/03/2023 Depression Screening 08/28/2024 09/25/2023 Falls Risk Assessment 09/25/2024 09/25/2023 Medicare Annual Wellness Visit 09/25/2024 09/25/2023 COVID-19 Vaccine (8 - Pfizer risk 2023- season) 2025 10/17/2024, 03/01/2024, 06/04/2023, Additional history exists Influenza Vaccine (#1) 2025 , 05/26/2023, 06/02/2019, Additional history exists Diabetes: Blood Sugar Control Test (HGBA1C) 09/18/2025 03/18/2025, 04/11/2024, 04/11/2024, Additional history exists Diabetes: Annual Urine Albumin-Creatinine Ratio (uACR) 10/10/2025 10/10/2024, 12/28/2023, 05/04/2018 Diabetes: Annual Foot Exam 03/13/2026 03/13/2025, Diabetes: Annual GFR (Glomerular Filtration Rate) 03/18/2026 03/18/2025, 10/10/2024, 05/29/2024, Additional history exists Hypertension/CHF/CAD Annual BMP Blood Test 03/18/2026 03/18/2025, 10/10/2024, 05/29/2024, Additional history exists Breast Cancer Screening 09/27/2026 09/27/2024, 09/14 Cholesterol Screening (Lipid Panel) 03/18/2030 03/18/2025, 06/04/2024, 05/26/2023, Additional history exists Colorectal Cancer Screening: Colonoscopy 12/31/2031 12/30/2021 DTaP,Tdap,and [...] Procedure Name Priority Date/Time Associated Diagnosis Comments HEMOGLOBIN A1C Routine 03/18/2025 10:10 AM EDT Type 2 diabetes mellitus with peripheral neuropathy ([facility] V24, [facility] V28) COMPREHENSIVE METABOLIC PANEL Routine 03/18/2025 10:10 AM EDT CKD stage 3b, GFR 30-44 ml/min ([facility] V24, [facility] V28) LIPID PANEL WITH REFLEX TO DIRECT LDL Routine 03/18/2025 10:10 AM EDT Mixed hyperlipidemia URIC ACID Routine 03/18/2025 10:10 AM EDT Chronic gout without tophus, unspecified cause, unspecified site MICROALBUMIN CREATININE URINE RATIO Routine 10/10/2024 2:21 PM EST Stage 3 chronic kidney disease, unspecified whether stage 3a or 3b CKD ([facility] V24, [facility] V28) MAMMO DIGITAL SCREENING W INDRA BILAT Routine 09/27/2024 10:07 AM EST Encounter for screening mammogram for breast cancer DEPRESSION SCREENING Routine 09/25/2023 FALLS RISK ASSESSMENT Routine 09/25/2023 DIABETES FOOT EXAM Routine 09/25/2023 DXA BONE DENSITY STUDY 1+ SITS AXIAL SKEL Routine 09/14/2023 3:42 PM EST Encounter for screening for osteoporosis DIABETES EYE EXAM Routine 08/03/2023 HEPATITIS C SCREENING Routine 05/26/2023 COLONOSCOPY Routine 12/30/2021 from Last 3 Months or Most Recently Relevant to Health Maintenance Results * Lipid panel with reflex to direct LDL (03/18/2025 10:10 AM EDT) [facility] Cholesterol 131 0 - 200 mg/dL LAB CHEMISTRY METHOD 03/18/2025 2:36 PM EDT [facility] Triglycerides 109 0 - 150 mg/dL LAB CHEMISTRY METHOD 03/18/2025 2:36 PM EDT [facility] HDL 66 >=40 mg/dL LAB CHEMISTRY METHOD 03/18/2025 2:36 PM EDT [facility] LDL Calculated 43 0 - 100 mg/dL LAB CHEMISTRY METHOD 03/18/2025 2:36 PM EDT [facility] VLDL Cholesterol Balta 21.8 mg/dL LAB CHEMISTRY METHOD 03/18/2025 2:36 PM EDT [facility] Non HDL Chol. (LDL+VLDL) 65 <145 mg/dL LAB CHEMISTRY METHOD 03/18/2025 2:36 PM EDT [facility] Chol/HDL Ratio 2.0 0.0 - 4.4 LAB CHEMISTRY METHOD 03/18/2025 2:36 PM EDT [facility] Blood Venous blood specimen / Unknown Venipuncture / Unknown 03/18/2025 10:10 AM EDT 03/18/2025 10:10 AM EDT us Nicholas Bustamante MD LAB BLOOD ORDERA BLES Final Result [facility] [address] [place] [address], * Uric acid (03/18/2025 10:10 AM EDT) Uric Acid 4.9 3.1 - 7.8 mg/dL LAB CHEMISTRY METHOD 03/18/2025 2:36 PM EDT [facility] Blood Venous blood specimen / Unknown Venipuncture / Unknown 03/18/2025 10:10 AM EDT 03/18/2025 10:10 AM EDT us Nicholas Bustamante MD LAB BLOOD ORDERA BLES Final Result [facility] [address] [place] [address], [place] [phone] * Hemoglobin A1c (03/18/2025 10:10 AM EDT) [facility] Hemoglobin A1C 5.9 <6.5 % LAB CHEMISTRY METHOD 03/18/2025 6:00 PM EDT [facility] Mean Bld Glu Estim. 123 mg/dL LAB CHEMISTRY METHOD 03/18/2025 6:00 PM EDT [facility] Blood Venous blood specimen / Unknown Venipuncture / Unknown 03/18/2025 10:10 AM EDT 03/18/2025 10:10 AM EDT Nicholas Bustamante MD LAB BLOOD ORDERA BLES Final Result [facility] [address] [place] [address], [place] [phone] * (ABNORMAL) Comprehensive metabolic panel (03/18/2025 10:10 AM EDT) [facility] Sodium 142 133 - 145 mmol/L LAB CHEMISTRY METHOD 03/18/2025 2:54 PM [facility] Potassium 3.3(L) 3.5 - 5.5 mmol/L LAB CHEMISTRY METHOD 03/18/2025 2:54 PM [facility] Chloride 109 96 - 110 mmol/L LAB CHEMISTRY METHOD 03/18/2025 2:54 PM T [facility] CO2 24 21 - 32 mmol/L LAB CHEMISTRY METHOD 03/18/2025 2:54 PM T [facility] Anion Gap 9 3 - 11 LAB CHEMISTRY METHOD 03/18/2025 2:54 PM [facility] Glucose 94 70 - 100 mg/dL LAB CHEMISTRY METHOD 03/18/2025 2:54 PM [facility] BUN 23 5 - 25 mg/dL LAB CHEMISTRY METHOD 03/18/2025 2:54 PM [facility] Creatinine 1.31(H) 0.50 - 1.10 mg/dL LAB CHEMISTRY METHOD 03/18/2025 2:54 PM [facility] eGFR 44(L) >=60 mL/min/1. 73m2 LAB CHEMISTRY METHOD 03/18/2025 2:54 PM [facility] Comment:Calculation based on the Chronic Kidney Disease Epidemiology Collaboration (CKD-EPI) equation refit without adjustment for race. BUN/Creatinine Ratio 17.6 LAB CHEMISTRY METHOD 03/18/2025 2:54 PM [facility] Calcium 9.1 8.5 - 10.5 mg/dL LAB CHEMISTRY METHOD 03/18/2025 2:54 PM [facility] AST (SGOT) 19 10 - 42 unit/L LAB CHEMISTRY METHOD 03/18/2025 2:54 PM [facility] ALT (SGPT) 21 10 - 60 unit/L LAB CHEMISTRY METHOD 03/18/2025 2:54 PM [facility] Alkaline Phosphatase 94 42 - 121 unit/L LAB CHEMISTRY METHOD 03/18/2025 2:54 PM [facility] Total Protein 7.3 6.0 - 8.0 g/dL LAB CHEMISTRY METHOD 03/18/2025 2:54 PM [facility] Albumin 3.8 3.2 - 5.0 g/dL LAB CHEMISTRY METHOD 03/18/2025 2:54 PM [facility] Total Bilirubin 0.4 0.0 - 1.4 mg/dL LAB CHEMISTRY METHOD 03/18/2025 2:54 PM [facility] Blood Venous blood specimen / Unknown Venipuncture / Unknown 03/18/2025 10:10 AM EDT 03/18/2025 10:10 AM EDT Okiran Bustamante MD LAB BLOOD ORDERA BLES Final Result Performing Organization Address [facility]/ZIP Co de Phone Number [facility] [address] [place] [address], [place] [phone] * (ABNORMAL) Microalbumin creatinine urine ratio (10/10/2024 2:21 PM EST) Creatinine, Urine 268.0 mg/dL LAB CHEMISTRY METHOD 10/10/2024 5:39 PM EST [facility] Microalb, Ur 222.0(H) 0.0 - 29.0 mg/L LAB CHEMISTRY METHOD 10/10/2024 5:39 PM EST [facility] Microalb/Crea t Ratio 83(H) <30 mg/g creat LAB CHEMISTRY METHOD 10/10/2024 5:39 PM EST [facility] Urine Urine specimen obtained by clean catch procedure / Unknown Non-blood Collection / Unknown 10/10/2024 2:21 PM EST 10/10/2024 2:21 PM EST Beto Gonzalez MD LAB URINE ORDERABLES Final Res ult [facility] [address] [place] [address], [place] [phone] * MG Mammo Digital Screening w Indra bilat (09/27/2024 10:07 AM EST) Anatomical Region Laterality Modality Breast Bilateral Mammography 09/27/2024 10:2 5 AM EST Impressions 09/27/2024 11:25 AM EST Benign. BI-RADS CATEGORY: 1 - NEGATIVE RECOMMENDATION: Screening bilateral mammogram is recommended in 1 year. Mammo Location: [place] [facility], [address] [place] [address], [id number], . -------- FINAL REPORT -------- Dictated By: lAisha Collier Dictated Date: 09/27/2024 10:25 ET Assigned Physician: Alisha Collier Reviewed and Electronically Signed By: Alisha Collier Signed Date: 09/27/2024 11:25 ET Workstation ID: [id number] Transcribed By: Self Edit Transcribed Date: 09/27/2024 [...] is recommended in 1 year. Mammo Location: [facility], [address] [place] [address], [id number], . -------- FINAL REPORT -------- Dictated By: Alisha Collier Dictated Date: 09/27/2024 10:25 ET Assigned Physician: Alisha Collier Reviewed and Electronically Signed By: Alisha Collier Signed Date: 09/27/2024 11:25 ET Workstation ID: [id number] Transcribed By: Self Edit Transcribed Date: 09/27/2024 11:05 ET Nicholas Bustamante MD IMG BI PROCEDURE S Final Result * Falls Risk Assessment (09/25/2023) [facility] Falls Risk Assessment abstracted Historical Provider HEALTH MAINTENANCE Final Result * Depression Screening (09/25/2023) Pathologist [facility] Depression Screening abstracted Historical Provider HEALTH MAINTENANCE Final Result * Diabetes Foot Exam (09/25/2023) [facility] Diabetes: Annual Foot Exam abstracted Historical Provider HEALTH MAINTENANCE Final [...] spine and left hip were obtained using [employer] W (S/N [id number]). COMPARISON: None FINDINGS: L1-L4 BMD: 0.971 g/cm2 [...] lumbar spineand left hip were obtained using [employer] W (S/N [id number]). COMPARISON: None FINDINGS: L1-L4 BMD: 0.971 g/cm2 [...] below -2.5 SD Osteoporosis Nicholas Bustamante MD [facility] DXA PROCEDUR ES Final Result * Diabetes Eye Exam (08/03/2023) [facility] Diabetes: Annual Retina Eye Exam abstracted Historical Provider HEALTH MAINTENANCE Final Result * Hepatitis C Screening (05/26/2023) [facility] Hepatitis C Screening abstracted Historical Provider HEALTH MAINTENANCE Final Result * Colonoscopy (12/30/2021) Colonoscopy abstracted, no interpretation Anatomical Region Laterality Modality Other Historical Provider HEALTH MAINTENANCE Final Result from Last 3 Months or Most Recently Relevant to Health Maintenance Insurance MEDICARE [place]ICAID [place] [employer] Care Teams Environmental Technical Officer Relationship Specialty Start Date End Date Nicholas Bustamante MD [address] [place] [id number] PCP - General 12/30/22
== END 2025-03-25 10:23 | disposition home or self-care (01) ==
LOC: HO.LAB 10:22
PROVIDERS: PCP Family Medicine; Visit Provider Psychiatry & Neurology Neurology
DX: D35.2 Benign neoplasm of pituitary gland (principal)
CPT/HCPCS: 36415; 84146

== ENCOUNTER 2025-04-10 08:27 | Outpatient (AMB) | payer MEDICARE, SELFPAY ==
--- NOTE | 2025-04-10 08:34 | A.OFFVIS_ITS ---
Intake Visit Reasons: 4 weeks for US and prolactin Allergies No Known Allergies (No Known Allergies*) Allergy (Verified 03/12/24 07:37) HPI Comments Details: 70 yo RH woman with a pituitary lesion treated with cabergoline for a number of years, a right external capsular infarct noted on CT at [facility] in [place], vertigo, and hand numbness.She is tolerating 0.5mg of cabergoline without problem. She is presenting with a need for medication management for elevated prolactin levels. Her prolactin is monitored regularly to determine her appropriate dose of cabergoline, which currently needs reducing from 0.5 mg daily to half a pill twice weekly due to low levels found in her recent check-up. She is managing a pituitary tumor characterized by a non-discrete, widespread structure that precludes surgical removal, and the tumor has been stable over time in its presentation. The patient has not had surgery for this condition, relying on pharmacologic treatment. [facility] Medical History (Updated 04/10/25 @ 08:45 by Dirk Lund MD) Carpal tunnel syndrome, bilateral upper limbs Carpal tunnel syndrome Cerebral microvascular disease Cerebral infarction Vertigo Hypertension Diabetes Review of Systems Const Details: - Neurological: Reports no issues. - Endocrine: Denies any new symptoms related to prolactin or cabergoline effects. - General: Denies pain or discomfort. Physical Exam Neuro Other: Mental Status: Alert and oriented to person, place, and time. Normal attention. Normal spontaneous speech, fluency, and comprehension. No obvious issues with mood and memory. Affect is appropriate. Cranial Nerves: CN II: Visual nieves full to confrontation, visual acuity intact. CN III, IV, : Pupils equal, round, reactive to light and accommodation. Extraocular movements are normal. CN V: Facial sensation is normal. CN VII: Facial movements symmetrical. CN VIII: Hearing intact to bedside conversation is normal. CN IX, X: Palate elevates symmetrically. CN XI: Shoulder shrug and head turn symmetrical. CN XII: Tongue midline without atrophy or fasciculations. Extrapyramidal: Full facial expressions and blinking. No rigidity. Movements are appropriate with no tremor or abnormality. Speech: Normal; no dysarthria or tremor. Results Reviewed Results Reviewed: Prolactin level <1 Assessment & Plan Assessment & Plan (1) Pituitary adenoma: Comment: MRI brain WWO at [facility] in February 2025: Stable pituitary area complex lesion MRI brain WWO at [place] in Jun 2024: Stable pituitary lesion MRI brain WWO at [facility] in Apr 2024: Mod MVD, pituitary macroadenoma CT brain WO at [place] in December 2023: b/l basal ganglia area hypodensities, probably chronic infarctions MRI brain WWO at [place] in May 2023: 1.5 x 1.4 x 1.7 pituitary lesion with enhancement. EMG/NCS UEs at [facility] in 2023: Mod L and mild to mod R CTS, L mid cervical rad CT brain WO at [facility] in 2021 and 2023: R ext cap area mod sized ischemic infarct. Code(s): D35.2 - Benign neoplasm of pituitary gland Category: Medical (2) Cerebral infarction: Code(s): I63.9 - Cerebral infarction, unspecified Category: Medical Qualifiers: Cerebral infarction mechanism: thrombosis Precerebral and cerebral artery: unspecified cerebral artery Qualified Code(s): I63.30 - Cerebral infarction due to thrombosis of unspecified cerebral artery Plan Impression: a: Pituitary adenoma treated with cabergolin, recent prolactin level was very low and MRI brain revealed stability of lesion b: H/O cerebral infarct and microvascular ischemic changes Rec: a: Decrease cabergolin to half of 0.5mg tab twice a week b: Continue aspirin 81mg daily Medications: Changed From cabergoline 0.25 mg PO QWEEK To cabergoline 0.25 mg orally 2 times a week; 60 tabs 0RF Coding Level of Care Code Est Pt Level 5 (96285) Diagnoses Pituitary adenoma D35.2 Cerebral infarction due to thrombosis of cerebral artery I63.30 Cerebral infarction mechanism: thrombosis Precerebral and cerebral artery: unspecified cerebral artery
--- OUTSIDE RECORDS SUMMARY | 2025-04-10 08:44 | XMS_ITS | Clinical Summary ---
Author Organization [facility] [address] Address [address] [place] [address] Phone Care Team Providers Care Server Security Administrator Name Role Phone Nicholas Bustamante MD Primary Care Pr ovider Allergies No known active allergies Medications cabergoline (DOSTINEX) 0.5 mg tablet Take 1 tablet (0.5 mg total) by mouth 1 (one) time per week. 12/11/19 24 Active blood sugar diagnostic (FreeStyle Lite Strips) test strip Apply 1 Strip topically every morning (before breakfast). 02/05/20 24 Active blood-glucose meter kit BLOOD GLUCOSE MONITORING SUPPL (FREESTYLE LITE) W/DEVICE KIT 1 Kit by Does not apply route every morning (before breakfast). 02/05/20 24 Active ascorbic acid, vitamin C, 500 mg capsule Take 500 mg by mouth daily. Active FREESTYLE LANCETS MISC Active aspirin 81 mg EC tablet TAKE 1 TABLET BY MOUTH 1 TIME EACH DAY. 90 tablet 2 10/30/19 25 Active sertraline (ZOLOFT) 100 mg tablet Take 1 tablet (100 mg total) by mouth 1 (one) time each day. 90 each 1 11/08/19 25 Active promethazine (PHENERGAN) 25 mg tabletIndicatio ns:Pituitary adenoma (CMS/HCC V24, CMS/HCC V28) Take 1 tablet (25 mg total) by mouth 1 (one) time per week. 30 tablet 11/08/19 25 Active pantoprazole (PROTONIX) 40 mg EC tablet Take 1 tablet (40 mg total) by mouth 1 (one) time each day. Do not crush, chew, or split. 90 each 1 11/08/19 25 Active folic acid (FOLVITE) 400 mcg tablet Take 1 tablet (400 mcg total) by mouth 1 (one) time each day. 90 each 1 11/08/19 25 Active cholecalciferol (VITAMIN D-3) 25 mcg (1,000 unit) capsule Take 1 capsule (1,000 Units total) by mouth 1 (one) time each day. 90 capsule 1 11/08/19 25 Active baclofen (LIORESAL) 10 mg tablet Take 1 tablet (10 mg total) by mouth 3 (three) times a day. 270 each 11/08/19 25 Active atorvastatin (LIPITOR) 40 mg tablet Take 1 tablet (40 mg total) by mouth at bedtime. 90 each 1 11/08/19 25 Active omega-3 acid ethyl esters (LOVAZA) 1 gram capsule Take 1,000 mg by mouth daily. 90 capsule 1 12/31/19 25 Active allopurinoL (ZYLOPRIM) 100 mg tablet TAKE 1 TABLET BY MOUTH 1 TIME EACH DAY. 90 tablet 1 12/31/19 25 Active amLODIPine (NORVASC) 10 mg tabletIndicatio ns:Primary hypertension Take 1 tablet (10 mg total) by mouth 1 (one) time each day. 90 tablet 1 03/13/20 25 Active lisinopril (PRINIVIL,ZESTR IL) 40 mg tabletIndicatio ns:Primary hypertension Take 1 tablet (40 mg total) by mouth 1 (one) time each day. 90 each 1 03/13/20 25 Active spironolactone (Aldactone) 25 mg tabletIndicatio ns:Primary hypertension Take 0.5 tablets (12.5 mg total) by mouth 1 (one) time each day. 15 each 03/13/20 25 025 Active potassium chloride (KLOR-CON M20) 20 mEq CR tabletIndicatio ns:Hypokalemia Take 1 tablet (20 mEq total) by mouth 1 (one) time each day. Tablet may be swallowed whole (do not crush/chew/thomas ck on) OR broken in half and each half swallowed separately OR dissolved (whole tablet) in ~4 ounces of water (allow ~2 minutes to dissolve, stir well and administer immediately). 90 each 2 03/19/20 25 026 Active meclizine (ANTIVERT) 12.5 mg tablet TAKE 1 TABLET BY MOUTH DAILY IF NEEDED FOR DIZZINESS OR NAUSEA 30 tablet 5 03/26/20 25 Active lisinopril (PRINIVIL,ZESTR IL) 40 mg tablet Take 1 tablet (40 mg total) by mouth 1 (one) time each day. 90 each 1 11/08/19 25 025 Discontinued(R eorder) meclizine (ANTIVERT) 12.5 mg tablet TAKE 1 TABLET (12.5 MG TOTAL) BY MOUTH IF NEEDED FOR DIZZINESS OR NAUSEA. 30 tablet 2 12/31/19 25 025 Discontinued amLODIPine (NORVASC) 10 mg tablet TAKE 1 TABLET BY MOUTH 1 TIME EACH DAY. 90 tablet 1 12/31/19 25 025 Discontinued(R eorder) Active Problems Problem Noted Date Diagnosed Date [...] 2 diabetes mellitus wit h peripheral neuropathy ([facility] V24, [facility] V28) 05/30/2024 Assessment & Plan (03/13/2025 12:00 PM EDT): Well-controlled with lifestyle management. Due for A1c which is ordered Due for DM eye exam and is referred Orders: Hemoglobin A1c; Future Diabetes Foot Exam Ambulatory referral to Ophthalmology; Future Pituitary adenoma ([facility] V24, [facility] V28) 10/2023 Overview (05/30/2024): Last Assessment & Plan: I reviewed this information in detail with Eduardo Sharee using a brain model. She has known about the pituitary tumor for 40 years and has never had symptoms of hormonal dysfunction. 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 Continue nephrology follow-up Orders: Comprehensive metabolic panel; Future Encounters Date Type Department Care Team Description 03/19/2025 Telephone Adult Medicine [address] [phone] Malia Menezes RN 03/13/2025 11:00 AM EDT Office Visit Adult Medicine [address] [phone] Nicholas Bustamante MD Primary hypertension (Primary Dx); CKD stage 3b, GFR 30-44 ml/min ([facility] V24, [facility] V28); Type 2 diabetes mellitus with peripheral neuropathy ([facility] V24, [facility] V28); History of CVA (cerebrovascular accident); Tobacco use disorder; Mixed hyperlipidemia; Gastroesophageal reflux disease without esophagitis; Anxiety and depression; Chronic gout without tophus, unspecified cause, unspecified site; Vitamin D deficiency; Lumbar back pain; Arthritis of right hand 01/22/2025 Telephone Adult Medicine [address] [phone] Terri Galindo MA RX request from Last 3 Months Immunizations Name Administration Dates Next Due Influenza Quadravalent, 0.5m l (Fluzone High-dose) 65yo and older 05/29/2024 Influenza Quadravalent, MDCK , 0.5ml, with preservative (Flucelvax) 6mo and older 05/15/2017 Influenza trivalent, 0.5mL ( Fluzone High-dose) 65yo and older 05/26/2023 Moderna SARS-CoV-2 COVID-19, mRNA, LNP-S, preservative free 03/01/2024 [employer]ger Covid-19 Bivalent, Or iginal + Ba.1 (Non-US Trademark [employer] Bivalent) 08/15/2022 [employer] SARS-CoV-2 COVID-19, mRNA, LNP-S, preservative free 12/13/2021,06/12/2021,12/09/2020,2020 Pneumococcal conjugate 20 va lent (Prevnar 20, PCV 20) 2mo and older 05/26/2023 Tdap Tetanus diptheria acell ular pertussis (Boostrix; Adacel) 7yo and older 05/26/2023 Zoster recombinant (Shingrix ) 19yo and older 06/04/2023 Surgical History Surgery Date Site/Laterality Comments TOTAL KNEE ARTHROPLASTY 2009 Bilateral PROCEDURE: [place] ARTHRP KNE CONDYLE&PLATU MEDIAL&LAT COMPARTMENTS Medical History Medical History Date Comments Type 2 diabetes mellitus wit h peripheral neuropathy ([facility] V24, [facility] V28) DX:Type 2 diabetes mellitus with peripheral neuropathy (HCC) Pituitary adenoma ([facility] V 24, [facility] V28) DX:Pituitary adenoma (HCC) Hypertension DX:Hypertension Lumbar back pain DX:Lumbar back pain; COMMENT: Workrelated injury, on disability for DJD Gout DX:Gout Depression DX:Depression Diabetes mellitus with nephr opathy ([facility] V24, [facility] V28) 05/17/2017 DX:Diabetes mellitus with n ephropathy ([facility]); COMMENT: Microalbuminuria Chronic renal insufficiency, stage I 05/17/2017 DX:Chronic renal insufficiency, stage I Family History Medical History Relation Name Comments Coronary artery disease Father [place] Breast cancer Mother Coronary artery disease Sister 1 [place] Arthritis Sister 2 Hands Relation Name Status [...] 1:30 PM EDT Office Visit Adult Medicine [address] [place] [phone] Nicholas Bustamante MD [address] [place], [place] 05/06/2025 9:30 AM EDT Office Visit Endocrinology - [address] [phone] Jaylene Magaña PA [address] [place] [address] 06/12/2025 1:45 PM EDT Office Visit Nephrology - [address] [phone] Beto Gonzalez MD [address] [phone] Health Maintenance Due Date Last Done Comments Social Influencers of Health Screening 10/01/2023 Depression Screening 08/28/2024 09/25/2023 Falls Risk Assessment [...] 03/18/2026 03/18/2025, 10/10/2024, 05/29/2024, Additional history exists Diabetes: Annual Retina Eye Exam 04/03/2026 04/03/2025, 08/03/2023 Breast Cancer Screening 09/27/2026 09/27/2024, 09/14 Cholesterol [...] Procedure Name Priority Date/Time Associated Diagnosis Comments EXTERNAL DIABETIC RETINA EYE EXAM 04/03/2025 HEMOGLOBIN A1C Routine 03/18/2025 10:10 AM EDT Type 2 diabetes mellitus with peripheral neuropathy ([facility] V24, [facility] V28) COMPREHENSIVE METABOLIC PANEL Routine 03/18/2025 10:10 AM EDT CKD stage 3b, GFR 30-44 ml/min ([facility] V24, [facility] V28) LIPID PANEL WITH REFLEX TO DIRECT LDL Routine 03/18/2025 10:10 AM EDT Mixed hyperlipidemia URIC ACID Routine 03/18/2025 10:10 AM EDT Chronic gout without tophus, unspecified cause, unspecified site MICROALBUMIN CREATININE URINE RATIO Routine 10/10/2024 2:21 PM EST Stage 3 chronic kidney disease, unspecified whether stage 3a or 3b CKD ([facility] V24, [facility] V28) MAMMO DIGITAL SCREENING W INDRA BILAT Routine 09/27/2024 10:07 AM EST Encounter for screening mammogram for breast cancer DEPRESSION SCREENING Routine 09/25/2023 FALLS RISK ASSESSMENT Routine 09/25/2023 DIABETES FOOT EXAM Routine 09/25/2023 DXA BONE DENSITY STUDY 1+ SITS AXIAL SKEL Routine 09/14/2023 3:42 PM EST Encounter for screening for osteoporosis HEPATITIS C SCREENING Routine 05/26/2023 COLONOSCOPY Routine 12/30/2021 from Last 3 Months or Most Recently Relevant to Health Maintenance Results * External Diabetic Retina Eye Exam Report (04/03/2025) Anatomical Region Laterality Modality Ultrasound us Provider [facility] IMG US PROCEDURES Final Result * Lipid panel with reflex to direct LDL (03/18/2025 10:10 AM EDT) Cholesterol 131 0 - 200 mg/dL LAB CHEMISTRY METHOD 03/18/2025 2:36 PM EDT [facility] Triglycerides 109 0 - 150 mg/dL LAB CHEMISTRY METHOD 03/18/2025 2:36 PM EDT [facility] HDL 66 >=40 mg/dL LAB CHEMISTRY METHOD 03/18/2025 2:36 PM EDT [facility] LDL Calculated 43 0 - 100 mg/dL LAB CHEMISTRY METHOD 03/18/2025 2:36 PM EDT [facility] VLDL Cholesterol Balta 21.8 mg/dL LAB CHEMISTRY METHOD 03/18/2025 2:36 PM EDT [facility] Non HDL Chol. (LDL+VLDL) 65 <145 mg/dL LAB CHEMISTRY METHOD 03/18/2025 2:36 PM EDT [facility] Chol/HDL Ratio 2.0 0.0 - 4.4 LAB CHEMISTRY METHOD 03/18/2025 2:36 PM EDT [facility] Blood Venous blood specimen / Unknown Venipuncture / Unknown 03/18/2025 10:10 AM EDT 03/18/2025 10:10 AM EDT Nicholas Bustamante MD LAB BLOOD ORDERA BLES Final Result [facility] [address] [place] [address], * Uric acid (03/18/2025 10:10 AM EDT) Uric Acid 4.9 3.1 - 7.8 mg/dL LAB CHEMISTRY METHOD 03/18/2025 2:36 PM EDT [facility] Blood Venous blood specimen / Unknown Venipuncture / Unknown 03/18/2025 10:10 AM EDT 03/18/2025 10:10 AM EDT Nicholas Bustamante MD LAB BLOOD ORDERA BLES Final Result Performing Organization Address [facility]/ZIP Co de Phone Number [facility] [address] [place] [address], [place] [phone] * Hemoglobin A1c (03/18/2025 10:10 AM EDT) [facility] Hemoglobin A1C 5.9 <6.5 % LAB CHEMISTRY METHOD 03/18/2025 6:00 PM EDT [facility] Mean Bld Glu Estim. 123 mg/dL LAB CHEMISTRY METHOD 03/18/2025 6:00 PM EDT [facility] Blood Venous blood specimen / Unknown Venipuncture / Unknown 03/18/2025 10:10 AM EDT 03/18/2025 10:10 AM EDT Nicholas Bustamante MD LAB BLOOD ORDERA BLES Final Result Performing Organization Address [facility]/ZIP Co de Phone Number [facility] [address] [place] [address], [place] [phone] * (ABNORMAL) Comprehensive metabolic panel (03/18/2025 10:10 AM EDT) [facility] Sodium 142 133 - 145 mmol/L LAB CHEMISTRY METHOD 03/18/2025 2:54 PM EDT [facility] Potassium 3.3(L) 3.5 - 5.5 mmol/L LAB CHEMISTRY METHOD 03/18/2025 2:54 PM EDT [facility] Chloride 109 96 - 110 mmol/L LAB CHEMISTRY METHOD 03/18/2025 2:54 PM EDT [facility] CO2 24 21 - 32 mmol/L LAB CHEMISTRY METHOD 03/18/2025 2:54 PM [facility] Anion Gap 9 3 - 11 LAB CHEMISTRY METHOD 03/18/2025 2:54 PM [facility] Glucose 94 70 - 100 mg/dL LAB CHEMISTRY METHOD 03/18/2025 2:54 PM [facility] BUN 23 5 - 25 mg/dL LAB CHEMISTRY METHOD 03/18/2025 2:54 PM [facility] Creatinine 1.31(H) 0.50 - 1.10 mg/dL LAB CHEMISTRY METHOD 03/18/2025 2:54 PM [facility] eGFR 44(L) >=60 mL/min/1. 73m2 LAB CHEMISTRY METHOD 03/18/2025 2:54 PM [facility] Comment:Calculation based on the Chronic Kidney Disease Epidemiology Collaboration (CKD-EPI) equation refit without adjustment for race. BUN/Creatinine Ratio 17.6 LAB CHEMISTRY METHOD 03/18/2025 2:54 PM [facility] Calcium 9.1 8.5 - 10.5 mg/dL LAB CHEMISTRY METHOD 03/18/2025 2:54 PM [facility] AST (SGOT) 19 10 - 42 unit/L LAB CHEMISTRY METHOD 03/18/2025 2:54 PM [facility] ALT (SGPT) 21 10 - 60 unit/L LAB CHEMISTRY METHOD 03/18/2025 2:54 PM [facility] Alkaline Phosphatase 94 42 - 121 unit/L LAB CHEMISTRY METHOD 03/18/2025 2:54 PM [facility] Total Protein 7.3 6.0 - 8.0 g/dL LAB CHEMISTRY METHOD 03/18/2025 2:54 PM [facility] Albumin 3.8 3.2 - 5.0 g/dL LAB CHEMISTRY METHOD 03/18/2025 2:54 PM [facility] Total Bilirubin 0.4 0.0 - 1.4 mg/dL LAB CHEMISTRY METHOD 03/18/2025 2:54 PM EDT [facility] Blood Venous blood specimen / Unknown Venipuncture / Unknown 03/18/2025 10:10 AM EDT 03/18/2025 10:10 AM EDT Nicholas Bustamante MD LAB BLOOD ORDERA BLES Final Result [facility] [address] [place] [address], [place] [phone] * (ABNORMAL) Microalbumin creatinine urine ratio (10/10/2024 2:21 PM EST) Creatinine, Urine 268.0 mg/dL LAB CHEMISTRY METHOD 10/10/2024 5:39 PM EST [facility] Microalb, Ur 222.0(H) 0.0 - 29.0 mg/L LAB CHEMISTRY METHOD 10/10/2024 5:39 PM EST [facility] Microalb/Crea t Ratio 83(H) <30 mg/g creat LAB CHEMISTRY METHOD 10/10/2024 5:39 PM EST [facility] Urine Urine specimen obtained by clean catch procedure / Unknown Non-blood Collection / Unknown 10/10/2024 2:21 PM EST 10/10/2024 2:21 PM EST us Beto Gonzalez MD LAB URINE ORDERABLES Final Res ult [facility] [address] [place] [address], [place] [phone] * MG Mammo Digital Screening w Indra bilat (09/27/2024 10:07 AM EST) Anatomical Region Laterality Modality Breast Bilateral Mammography 09/27/2024 10:2 5 AM EST Impressions 09/27/2024 11:25 AM EST Benign. BI-RADS CATEGORY: 1 - NEGATIVE RECOMMENDATION: Screening bilateral mammogram is recommended in 1 year. Mammo Location: [facility], [address] [place] [address], [phone], . -------- FINAL REPORT -------- Dictated By: Alisha Collier Dictated Date: 09/27/2024 10:25 ET Assigned Physician: Alisha Collier Reviewed and Electronically Signed By: Alisha Collier Signed Date: 09/27/2024 11:25 ET Workstation ID: [id number] Transcribed By: Self Edit Transcribed Date: 09/27/2024 [...] is recommended in 1 year. Mammo Location: [facility], [address] [place] [address], [id number], . -------- FINAL REPORT -------- Dictated By: Alisha Collier Dictated Date: 09/27/2024 10:25 ET Assigned Physician: Alisha Collier Reviewed and Electronically Signed By: Alisha Collier Signed Date: 09/27/2024 11:25 ET Workstation ID: [id number] Transcribed By: Self Edit Transcribed Date: 09/27/2024 11:05 ET Nicholas Bustamante MD IM BI PROCEDURE S Final Result * Falls Risk Assessment (09/25/2023) Pathologist [facility] Falls Risk Assessment abstracted Historical Provider MD HEALTH MAINTENANCE Final Result * Depression Screening (09/25/2023) Pathologist On license of [facility] Depression Screening abstracted Historical Provider HEALTH MAINTENANCE Final Result * Diabetes Foot Exam (09/25/2023) Pathologist On license of [facility] Diabetes: Annual Foot Exam abstracted Historical [...] spine and left hip were obtained using [employer] W (S/N [id number]). COMPARISON: None FINDINGS: L1-L4 BMD: 0.971 g/cm2 [...] lumbar spineand left hip were obtained using [employer] W (S/N [id number]). COMPARISON: None FINDINGS: L1-L4 BMD: 0.971 g/cm2 [...] IMG DXA PROCEDUR ES Final Result * Hepatitis C Screening (05/26/2023) Hepatitis C Screening abstracted Historical Provider HEALTH MAINTENANCE Final Result * Colonoscopy (12/30/2021) Colonoscopy abstracted, no interpretation Anatomical Region Laterality Modality Other Historical Provider HEALTH MAINTENANCE Final Result from Last 3 Months or Most Recently Relevant to Health Maintenance Insurance MEDICARE [place]ICAID [place] [employer] Care Teams Server Security Administrator Relationship Specialty Start Date End Date Nicholas Bustamante MD [address] [place] [id number] PCP - General 12/30/22
== END 2025-04-10 08:50 | disposition home or self-care (01) ==
LOC: HO.HSM 08:32
PROVIDERS: PCP Family Medicine; Visit Provider Psychiatry & Neurology Neurology
DX: D35.2 Benign neoplasm of pituitary gland (principal); I63.30 Cerebral infarction due to thrombosis of unspecified cerebral artery
CPT/HCPCS: 99214

== ENCOUNTER → 2025-04-10 08:27 | Outpatient (BNVA) | payer MEDICARE, SELFPAY | PROVIDERS: PCP Family Medicine; Visit Provider Psychiatry & Neurology Neurology | DX: D35.2 Benign neoplasm of pituitary gland (principal); I63.30 Cerebral infarction due to thrombosis of unspecified cerebral artery | CPT/HCPCS: 99212 ==

== ENCOUNTER 2025-04-24 12:47 | Outpatient (REF) | payer MEDICARE, MEDICAID, SELFPAY ==
--- NOTE | ~2025-04-24 | US_ITS ---
CLINICAL HISTORY: I65.29 - Occlusion and stenosis of unspecified carotid artery US Bilateral Carotid Duplex Comparison: None provided Findings: Mild atherosclerotic disease of the carotid bifurcation bilaterally. Normal color doppler and waveforms morphology. Peak systolic velocities: Right CCA: 65 cm/s. Right ICA: 57 cm/s. ICA/CCA ratio: 0.9. Right ECA: Unremarkable. Right vertebral artery flow antegrade. Left CCA: 115 cm/s. Left ICA: 128 cm/s. ICA/CCA ratio: 1.1 Left ECA: Unremarkable. Left vertebral artery flow antegrade. IMPRESSION: No evidence of hemodynamically significant stenosis by ratio. Mild atherosclerotic disease of the bifurcation bilaterally. This document has been electronically signed by: Eber Reis MD on 04/25/2025 07:19:56
--- OUTSIDE RECORDS SUMMARY | 2025-04-24 13:23 | XMS_ITS | Encounter Summary ---
Author Organization [facility] Address [address] [facility] [address] [place] [address] Phone Care Team Providers Care Instructional Writer Name Role Phone Pilar Hopson CNP Primary Care Provider Clark Madison MD Unavailable [phone] Pcp, Unknown Primary Care Provider Unavailabl e Encounter Details Date Type Department Care Team (Latest Contact Info) Description 05/04/2018 Transcribe Orders [address] [place] [address] Mike Sher MD [address] [facility] [address] [place] [address] [email or web address] Diabetic glomerulopathy (Primary Dx); Chronic kidney disease, stage III (moderate) Social History Tobacco Use Types Packs/Day Years Used Date Smoking Tobacco: Never Assessed Comments Unknown Sex and Gender Information Value Date Recorded Sex Assigned at Not on file Legal Sex Female 9:53 PM EDT Gender Identity Not on file Sexual Orientation Not on file documented as of this encounter Plan of Treatment Not on file documented as of this encounter Results * (ABNORMAL) Total protein creatinine ratio, random urine (05/04/2018 1:27 PM EDT) URINE TOTAL PROTEIN 44.9 mg/dL [facility] URINE CREATININE 161 mg/dL [facility] URINE TP CRE RATIO 0.28(H) 0 - 0.19 [facility] Urine (Urine) 05/04/2018 1:2 7 PM EDT 05/04/2018 1:33 PM EDT us Mike Sher MD URINE ORDERABLES Final Result Performing Organization Address [facility]/ZIP Co de Phone Number [address] [address] * (ABNORMAL) Urinalysis w/reflex Urine Culture (05/04/2018 1:27 PM EDT) COLOR Yellow Yellow [facility] CLARITY Clear [facility] GLUCOSE Negative Negative [facility] BILI Negative Negative [facility] KETONES Negative Negative [facility] SPECIFIC GRAVITY 1.025 1.005 - 1.030 [facility] BLOOD Negative Negative [facility] PH 5.5 5.0 - 8.0 [facility] Protein-UA Trace(A) Negative [facility] NITRITE Negative Negative [facility] Leukocyte esterase, ur Negative Negative [facility] Urine (Urine) 05/04/2018 1:2 7 PM EDT 05/04/2018 1:32 PM EDT us Mike Sher MD URINE ORDERABLES Edited Result - Final Performing Organization Address [facility] Co de Phone Number [address] [address] * Immunofixation only (05/04/2018 1:27 PM EDT) IMMUNOFIXATION No monoclonal protein detected. [facility] DPT OF LAB MED AND PAT+ Blood 05/04/2018 1:27 PM EDT 05/04/2018 1:31 PM EDT us Mike Sher MD LAB BLOOD ORDERABLES Final Resul t Performing Organization Address City/[facility]/ZIP Co de Phone Number [facility] DPT OF LAB MED AND PAT+ [address] [place] [address] * Uric acid (05/04/2018 1:27 PM EDT) URIC ACID 6.3 2.4 - 7.0 mg/dL [facility] Blood 05/04/2018 1:27 PM EDT 05/04/2018 1:31 PM EDT us Mike Sher MD LAB BLOOD ORDERABLES Final Resul t Performing Organization Address City/[facility]/ZIP Co de Phone Number [address] [address] * Parathyroid hormone (PTH) (05/04/2018 1:27 PM EDT) PARATHYROID HORMONE 41 15 - 65 pg/mL [facility] Blood 05/04/2018 1:27 PM EDT 05/04/2018 1:32 PM EDT us Mike Sher MD LAB BLOOD ORDERABLES Final Resul t Performing Organization Address [facility] Co de Phone Number [address] [address] * 25-OH vitamin D (05/04/2018 1:27 PM EDT) 25 OH VIT D (TOTAL) 40 30 - 60 ng/mL [facility] Blood 05/04/2018 1:27 PM EDT 05/04/2018 1:31 PM EDT us Mike Sher MD LAB BLOOD ORDERABLES Final Resul t Performing Organization Address [facility] Co de Phone Number [address] [address] * Renal panel (05/04/2018 1:27 PM EDT) SODIUM 143 133 - 146 mmol/L [facility] POTASSIUM 3.5 3.3 - 5.1 mmol/L [facility] CHLORIDE 103 96 - 108 mmol/L [facility] CO2 26 21 - 35 mmol/L [facility] GLUCOSE 87 70 - 99 mg/dL [facility] BUN 17 6 - 19 mg/dL [facility] CREATININE 0.90 0.5 - 1.5 mg/dL [facility] CALCIUM 8.9 8.4 - 10.3 mg/dL [facility] PHOSPHORUS 3.1 2.7 - 4.5 mg/dL [facility] ALBUMIN 4.1 3.9 - 4.8 g/dL [facility] EGFR 69 >59 mL/min/1.7 3m2 [facility] Comment:If patient is black, multiply result by 1.159. Estimated glomerular filtration rate calculated using the CKD-EPI equation. ANION GAP 18 10 - 20 mmol/L [facility] Blood 05/04/2018 1:27 PM EDT 05/04/2018 1:31 PM EDT us Mike Sher MD LAB BLOOD ORDERABLES Final Resul t [facility] [address] [place] [address] documented in this encounter Visit Diagnoses Diagnosis Diabetic glomerulopathy- Primary Type II or unspecified type diabetes mellitus with renal manifestations, not stated as uncontrolled Chronic kidney disease, stage III (moderate) Chronic kidney disease, Stage III (moderate) documented in this encounter Care Teams Instructional Writer Relationship Specialty Start Date End Date Pilar Hopson CNP [address] [place] [address] [place] [id number] [email or web address] PCP - General 06/15/17 07/19/20 Pcp, Unknown PCP - General 07/20/20 Clark Madison MD [address] [place] [address] [address] [place] [phone] Insurance Assigned Provider 09/02/17 documented as of this encounter Additional Source Comments The information contained in this document represents components of the legal health record. It is not the complete legal health record.[facility]
--- OUTSIDE RECORDS SUMMARY | 2025-04-24 13:23 | XMS_ITS | Clinical Summary ---
Author Organization [facility] Address [address] [address] Phone Care Team Providers Care Grinder Needle Tip Name Role Phone Pcp, Unknown Primary Care Provider Unavailabl e Allergies No known active allergies Medications blood sugar diagnostic (ACCU-CHEK JOSHUA PLUS) Strp strips USE TO CHEECK BLOOD SUGAR DAILY 100 strip 3 8 Active triamterene-hyd roCHLOROthiazid e (MAXZIDE-25) 37.5-25 mg per tablet TAKE ONE TABLET BY MOUTH EVERY DAY 90 tablet 3 9 Active fluticasone-mimi meterol (ADVAIR DISKUS) 250-50 mcg/dose DISKUS Inhale 1 puff into the lungs 2 (two) times a day. 180 each 3 9 Active ibuprofen (ADVIL,MOTRIN) 400 MG tabletIndicatio ns:Backache 2 tabs twice daily 360 tablet 3 9 Active blood sugar diagnostic (ACCU-CHEK JOSHUA PLUS) Strp strips 1 each by Percutaneous route daily. 100 strip 3 9 Active sertraline (ZOLOFT) 25 MG tablet TAKE ONE TABLET BY MOUTH EVERY DAY 90 tablet 3 9 Active aspirin 81 MG EC tablet TAKE ONE TABLET BY MOUTH ONCE DAILY 90 tablet 3 9 Active allopurinol (ZYLOPRIM) 100 MG tabletIndicatio ns:Gout, unspecified cause, unspecified chronicity, unspecified site TAKE ONE TABLET BY MOUTH EVERY DAY 90 tablet 3 9 Active lisinopril (PRINIVIL,ZESTR IL) 40 MG tabletIndicatio ns:Hyperlipidem ia TAKE ONE TABLET BY MOUTH EVERY DAY 90 tablet 3 9 Active lancets (ACCU-CHEK FASTCLIX LANCET DRUM) MiscIndications :Type 2 diabetes mellitus without complication, without long-term current use of insulin Use as directed to test blood sugar daily E11.9 100 each 3 9 Active promethazine (PHENERGAN) 25 MG tabletIndicatio ns:Nausea TAKE ONE TABLET BY MOUTH EVERY DAY WITH DINNER 30 tablet 5 9 Active meclizine (ANTIVERT) 12.5 mg tabletIndicatio ns:Nausea TAKE ONE TABLET BY MOUTH THREE TIMES A DAY NEEDED 90 tablet 2 9 Active HYDROmorphone (DILAUDID) 2 MG tabletIndicatio ns:Chronic bilateral low back pain with bilateral sciatica Take 1 tablet (2 mg total) by mouth 3 (three) times a day as needed (pain). 84 tablet 9 Active cabergoline (DOSTINEX) 0.5 mg tabletIndicatio ns:Prolactinoma TAKE ONE-HALF TABLET BY MOUTH ONCE A WEEK 4 tablet 5 9 Active Active Problems Problem Noted Date Diagnosed Date Epidermal cyst of face 01/16/2019 Assessment & Plan (01/16/2019 4:46 PM EDT): Likely cyst of preauricular area, but patient advised to monitor and follow-up if enlarging or changing. Patient verbalizes understanding and in agreement with plan. Vertigo 07/25/2018 Assessment & Plan (07/27/2018 9:05 AM EST): Stable on current therapies, f/u with Dr. Wesley as needed. Chronic low back pain 01/16/2018 Assessment & Plan (01/16/2019 4:46 PM EDT): Stable, somewhat improved with recent weight loss. Continue current therapies, no evidence of abuse or diversion. Follow-up in 6 months or sooner as needed. Assessment & Plan (10/17/2018 2:30 PM EST): Worsening low back pain overall, with some new disc bulging noted on recent MRI. Pt would prefer to wait until bariatric surgery for any further referral. Continue Butrans and Dilaudid. No evidence of abuse or diversion; controlled substance agreement updated. Pt verbalizes understanding and in agreement with plan. Assessment & Plan (07/27/2018 9:06 AM EST): Worsening low back pain, with new radicular symptoms reported. Will do MRI of lumbar spine for reevaluation, since last MRI was over 6 years ago. In meantime, continue Butrans and Dilaudid. No evidence of abuse or diversion; controlled substance agreement updated in office today. Pt verbalizes understanding and in agreement with plan. Assessment & Plan (04/18/2018 5:54 PM EDT): Offered referral to spine specialists, chiropractic, or physical therapy, but pt declines at this time. No evidence of abuse or diversion of medications. F/u in 3 months for CPE Assessment & Plan (01/16/2018 10:30 PM EDT): Offered referral to spine specialists, chiropractic, or physical therapy, but pt declines at this time. No evidence of abuse or diversion of medications. F/u in 3 months for CPE. Depression 01/16/2018 Assessment & Plan (07/27/2018 9:05 AM EST): Generally well managed on low dose Sertraline. F/u for any increasing anxiety or worsening depression. Pt verbalizes understanding and in agreement with plan. GERD (gastroesophageal reflux disease) 8 Assessment & Plan (07/27/2018 9:04 AM EST): Stable on current therapies, with recent weaning off medications. Avoid food triggers and f/u as needed. History of gout 01/16/2018 Assessment & Plan (07/27/2018 9:05 AM EST): Stable, without recent gout flares reported. Continue current therapies Overweight 01/16/2018 Assessment & Plan (10/17/2018 2:33 PM EST): Pt commended on her recent weight loss. F/u next week for bariatric surgery as planned. ANTOINETTE on CPAP 01/16/2018 Assessment & Plan (07/27/2018 9:02 AM EST): Stable, with compliant use reported. Prolactinoma 01/16/2018 Assessment & Plan (07/27/2018 9:01 AM EST): Stable, without evidence of complications. Continue Cabergoline. Type 2 diabetes mellitus wit hout complication, without long-term current use of insulin 01/16/2018 Assessment & Plan (01/16/2019 4:45 PM EDT): Well controlled off therapies, with very good improvement of A1C with recent weight loss. Continue improved eating habits and regular exercise. Repeat A1c prior to annual physical exam in 06/2019. Assessment & Plan (10/17/2018 2:31 PM EST): Well controlled on Metformin, with very good improvement of A1C with recent weight loss. May consider trial of discontinuing the Metformin if A1C continues to improve. Will get results of labs done yesterday at [facility] and call with results. Assessment & Plan (07/27/2018 9:03 AM EST): Well controlled on Metformin, with very good improvement of A1C with recent weight loss. May consider trial of discontinuing the Metformin if A1C continues to improve. Pt verbalizes understanding and in agreement with plan. Assessment & Plan (04/18/2018 5:53 PM EDT): Recent A1C shows significant improvement. Continue current regimen, diabetic diet, and regular exercise. F/u in 3 months for CPE Assessment & Plan (01/16/2018 10:29 PM EDT): Improving home BGLs. Will check A1C today and call with results. Encouraged pt on diabetic diet and regular exercise as tolerated. Hyperlipidemia 09/06/2017 Assessment & Plan (10/17/2018 2:32 PM EST): Stable on current therapies. Continue Simvastatin. Assessment & Plan (07/27/2018 9:03 AM EST): Stable on current therapies. Continue Simvastatin. Assessment & Plan (04/18/2018 5:53 PM EDT): Will check lipid panel and f/u at CPE in 3 months Hypertension 09/06/2017 Assessment & Plan (01/16/2019 4:46 PM EDT): Stable on current therapies. Pt encouraged to adhere to low sodium diet, avoid regular alcohol use, and importance of diet and exercise. Continue current medication regimen. Assessment & Plan (10/17/2018 2:32 PM EST): Stable on current therapies. Pt encouraged to adhere to low sodium diet, avoid regular alcohol use, and importance of diet and exercise. Continue current medication regimen. Assessment & Plan (07/27/2018 9:02 AM EST): Stable on current therapies. Pt encouraged to adhere to low sodium diet, avoid regular alcohol use, and importance of diet and exercise. Continue current medication regimen. Asthma 08/18/2017 Assessment & Plan (07/27/2018 9:02 AM EST): Stable on current therapies, without evidence of exacerbation. F/u as needed. Assessment & Plan (04/18/2018 5:52 PM EDT): Stable on current therapies. Continue Advair and Albuterol inhaler as needed. Assessment & Plan (01/16/2018 10:29 PM EDT): Stable on current therapies. Continue Advair and Albuterol inhaler as needed. CKD (chronic kidney disease) stage 3, GFR 30-59 ml/min 05/17/2017 Assessment & Plan (01/16/2019 4:45 PM EDT): Improved overall with weight loss. Follow-up with Dr. Sher of nephrology as scheduled. Assessment & Plan (10/17/2018 2:31 PM EST): Stable on current therapies, f/u with Dr. Sher as scheduled. Pt advised on adequate fluid intake, low sodium and potassium intake, and avoiding renal toxic medications. Assessment & Plan (07/27/2018 9:04 AM EST): Stable on current therapies, f/u with Dr. Sher as scheduled. Pt advised on adequate fluid intake, low sodium and potassium intake, and avoiding renal toxic medications. Assessment & Plan (04/18/2018 5:54 PM EDT): Asymptomatic. Continue f/u with Dr. Sher. Pt advised on adequate fluid intake, low sodium and potassium intake, and avoiding renal toxic medications. Resolved Problems Problem Noted Date Diagnosed Date Resolved Date Routine general medical exam ination at a health care facility 07/27/2018 07/27/2018 Assessment & Plan (07/27/2018 9:00 AM EST): Generally well female, despite numerous chronic conditions. Pt commended on recent weight loss and encouraged to continue improved diet; encouraged to start regular exercise as well. Up to date on colonoscopy, immunizations, mammogram, and pap smear. Advised to consume at least 1200 mg Calcium and 2000 iU Vitamin D daily by diet and/or supplementation. Malaise and fatigue 01/16/2018 07/27/20 Assessment & Plan (01/16/2018 10:31 PM EDT): Of unclear etiology. Will check thyroid function, Hgb A1C, Vitamin D level, and Lyme. Will call with results in 1-2 days and treat based on these results. Immunizations Immunization Administration Dates Next Due Hepatitis B 08/02/2004,04/29/2004,01/23/2004 INFLUENZA, SPLIT VIRUS, TRIVALENT PF 07/07/2016, 06/19/2008 INFLUENZA, SPLIT VIRUS, TRIV ALENT W/ PRESERVATIVE IM 06/02/2014 Influenza Quadrivalent MDCK w/Preservative IM 05/15/2017 Influenza Quadrivalent Preservative Free IM 04/28 Influenza trivalent preserva tive free intradermal 06/06/2013 MMR 01/20/2004 PPD Test 07/25/2016,06/19/2008 Pneumococcal polysaccharide PPSV23 11/23/2017 Tdap 06/02/2014,01/20/2004 Zoster recombinant 02/21/2018,11/23/2017 Family History Medical History Relation Comments Asthma Daughter Obesity Daughter Heart attack Father Breast cancer Mother Diabetes Paternal Aunt Diabetes Paternal Grandfather Diabetes Paternal Uncle Heart attack Sister 1 Arthritis Sister 2 Relation Status Comments Daughter Alive Father (Age 55) Maternal Grandfather Maternal Grandmother Mother (Age 76) Paternal Aunt Paternal Grandfather Paternal Grandmother Paternal Uncle Sister 1 (Age 45) Sister 2 Alive Social History Tobacco Use Types Packs/Day Years Used Date Smoking Tobacco: Every Day Cigarettes Smokeless Tobacco: Never Tobacco Cessation:Ready to Q uit: No; Counseling Given: Yes Alcohol Use Standard Drinks/Week Comments No 0 (1 standard drink = 0.6 oz pur e alcohol) Education Answer Date Recorded Are you interested in more education? Not on samreen e 12/23/2022 Are you concerned about learning? Not on file 12/23/2022 No 12/23/2022 No 12/23/2022 Digital Access Answer Date Recorded No 01/23/2023 No 01/23/2023 Reliable internet access at home? Not on file 01/23/2023 Device with a working camera? Not on file Education Answer Date Recorded What is the highest level of school you have completed or the highest degree you have received? Some college, no degree 07/25/2018 Comments Unknown Sex and Gender Information Value Date Recorded Sex Assigned at Not on file Legal Sex Female 9:53 PM EDT Gender Identity Not on file Sexual Orientation Not on file Occupation Industry Job Start Date Job End Date Disabled due to back injury Not on file Not on file Not on file Last Filed Vital Signs Vital Sign Reading Time Taken Comments Blood Pressure 118/76 01/16/2019 2:09 PM EDT Pulse 79 01/16/2019 2:09 PM EDT Temperature - - Respiratory Rate - - Oxygen Saturation 97% 01/16/2019 2:09 PM EDT Inhaled Oxygen Concentration - - Weight 72.1 kg (159 lb) 01/16/2019 2:09 PM EDT Height 152.4 cm (5') 01/16/2019 2:09 PM EDT Body Mass Index 31.05 01/16/2019 2:09 PM EDT Plan of Treatment Health Maintenance Due Date Last Done Comments BLOOD PRESSURE 1957 SMOKING Hx and SMOKELESS TOBACCO SCREENING 1970 HEPATITIS C SCREENING 1975 COLOGUARD 2002 COLONOSCOPY 2002 COLORECTAL CANCER SCREENING 2002 FIT TEST 2002 FOBT 2002 SIGMOIDOSCOPY 2002 VIRTUAL COLONOSCOPY 2002 RSV VACCINE (1 - Risk 60-74 years 1-dose series) 2017 DIABETIC EYE EXAM 06/28/2017 PNEUMOCOCCAL VACCINES (50+ years) (2 of 2 - PCV) 11/23/2018 11/23/2017 HEMOGLOBIN A1C 04/15/2019 10/16/2018, 04/28, 05/04/2018, Additional history exists CREATININE LEVEL 05/04/2019 05/04/2018, , 01/16/2018, Additional history exists POTASSIUM LEVEL 05/04/2019 05/04/2018, 03/29, 01/16/2018, Additional history exists LIPID PANEL 05/16/2019 05/16/2018, 05/04/2018 DEPRESSION SCREENING 07/25/2019 07/25/2018 MAMMOGRAM 07/01/2020 07/01/2019 OSTEOPOROSIS SCREENING INITIAL (ONE-TIME) 2022 COVID-19 VACCINE ( season) 2024 Adult Td,Tdap Booster 06/02/2024 06/02/2014, 004 ZOSTER VACCINES Completed 02/21/2018, 11/23/2017 HEPATITIS A VACCINES Aged Out No long er eligible based on patient's age to complete this topic HIB VACCINES Aged Out No longer eligi ble based on patient's age to complete this topic MENINGOCOCCAL VACCINES (ACWY) Aged Out No longer eligible based on patient's age to complete this topic MENINGOCOCCAL VACCINES (B) Aged Out N o longer eligible based on patient's age to complete this topic Medical Devices Not on file Procedures Procedure Name Priority Date/Time Associated Diagnosis Comments HM MAMMOGRAPHY Routine 07/01/2019 OUTSIDE HEMOGLOBIN A1C Routine 10/16/2018 LIPID PANEL Routine 05/04/2018 1:27 PM EDT Type 2 diabetes mellitus with hyperglycemia, without long-term current use of insulin Mixed hyperlipidemia RENAL PANEL Routine 05/04/2018 1:27 PM EDT Diabetic glomerulopathy Chronic kidney disease, stage III (moderate) from Last 3 Months or Most Recently Relevant to Health Maintenance Results * MAMMOGRAPHY FOR RESULT ENTRY ONLY (07/01/2019) Mammogram no change in mammo repeat annually Comment:[facility] Mammo. No change s. Repeat annually Historical Provider HEALTH MAINTENANCE Final Result * Outside HbA1c (10/16/2018) Hemoglobin A1c - External 5.7 % Historical Provider LAB BLOOD ORDERABLES Hilda l Result * Renal panel (05/04/2018 1:27 PM EDT) SODIUM 143 133 - 146 mmol/L [facility] POTASSIUM 3.5 3.3 - 5.1 mmol/L [facility] CHLORIDE 103 96 - 108 mmol/L [facility] CO2 26 21 - 35 mmol/L [facility] GLUCOSE 87 70 - 99 mg/dL [facility] BUN 17 6 - 19 mg/dL [facility] CREATININE 0.90 0.5 - 1.5 mg/dL [facility] CALCIUM 8.9 8.4 - 10.3 mg/dL [facility] PHOSPHORUS 3.1 2.7 - 4.5 mg/dL [facility] ALBUMIN 4.1 3.9 - 4.8 g/dL [facility] EGFR 69 >59 mL/min/1.7 3m2 [facility] Comment:If patient is black, multiply result by 1.159. Estimated glomerular filtration rate calculated using the CKD-EPI equation. ANION GAP 18 10 - 20 mmol/L [facility] Blood 05/04/2018 1:27 PM EDT 05/04/2018 1:31 PM EDT Mike Sher MD LAB BLOOD ORDERABLES Final Resul t [facility] [address] [place] [address] * (ABNORMAL) Lipid panel (05/04/2018 1:27 PM EDT) HDL 46 mg/dL [facility] Comment: Interpretation: Risk Level Females Decreased >55mg/dL Average 50-55 mg/dL Increased <50 mg/dL CHOLESTEROL 157 0 - 240 mg/dL [facility] TRIGLYCERIDES 186(H) 30 - 160 mg/dL [facility] LDL 74 50 - 129 mg/dL [facility] Comment: LDL levels in terms of risk for coronary heart disease: <100 mg/dL: Optimal 100-129 mg/dL: Near or above optimal 130-159 mg/dL: Borderline high 160-189 mg/dL: High >190 mg/dL: Very High CARDIAC RISK RATIO 3.4 3.3 - 4.4 [facility] Blood 05/04/2018 1:27 PM EDT 05/04/2018 1:31 PM EDT Pilar Hopson [facility] LAB BLOOD ORDERABLES F inal Result [facility] [address] [place] [address] from Last 3 Months or Most Recently Relevant to Health Maintenance Insurance MEDICARE PART A & B [facility]IC[facility] PART A & [facility]IC[facility] PART A & [facility] [place] [facility] [place] [facility] [place] [facility] B [facility] Care Teams Grinder Needle Tip Relationship Specialty Start Date End Date Pcp, Unknown PCP - General 07/20/20 Additional Source Comments The information contained in this document represents components of the legal health record. It is not the complete legal health record.[facility]
--- OUTSIDE RECORDS SUMMARY | 2025-04-24 13:23 | XMS_ITS | Encounter Summary ---
Author Organization [facility] Address [address] [facility] [address] [place] [phone] Phone Care Team Providers Care Note Taker Name Role Phone Pilar Hopson CNP Primary Care Provider Lulu Welch Unavailable [phone] Clark Madison MD Unavailable [phone] Pcp, Unknown Primary Care Provider Unavailabl e Encounter Details Date Type Department Care Team (Late st Contact Info) Description 08/14/2017 Ancillary Orders [facility] [address] [facility] [address] [place], [place] [phone] Pilar Hopson CNP 14 [facility] [address] [place], [place] [id number] [email or web address] Dyspnea on exertion Social History Tobacco Use Types Packs/Day Years Used Date Smoking Tobacco: Never Assessed Comments Unknown Sex and Gender Information Value Date Recorded Sex Assigned at Not on file Legal Sex Female 9:53 PM EDT Gender Identity Not on file Sexual Orientation Not on file documented as of this encounter Plan of Treatment Not on file documented as of this encounter Visit Diagnoses Diagnosis Dyspnea on exertion Other dyspnea and respiratory abnormality documented in this encounter Care Teams Note Taker Relationship Specialty Start Date End Date Pilar Hopson CNP 14 [facility] [address] [place], [place] [id number] PCP - General 06/15/17 07/19/20 Pcp, Unknown PCP - General 07/20/20 Lulu Welch 14 [facility] [address] [place] [address] [email or web address] Register In Chancery 06/21/1712/27 Clark Madison MD 14 [facility] [address] [place] [address] [email or web address] Insurance Assigned Provider 09/02/17 documented as of this encounter Additional Source Comments The information contained in this document represents components of the legal health record. It is not the complete legal health record.[facility]
--- OUTSIDE RECORDS SUMMARY | 2025-04-24 13:23 | XMS_ITS | Encounter Summary ---
Author Organization [facility] Address [address] [facility] [address] [place] [phone] Phone Care Team Providers Care Field Service Manager Name Role Phone Pilar Hopson HEALTH COORDINATOR Primary Care Provider Clark Madison MD Unavailable [phone] Pcp, Unknown Primary Care Provider Unavailabl e Encounter Details Date Type Department Care Team (Late st Contact Info) Description 05/04/2018 Transcribe Orders [facility] [address] [place] [address] [place] [address] Pilar Hopson, HEALTH COORDINATOR 14 [facility] [address] [place], [place] [phone] [email or web address] Type 2 diabetes mellitus with hyperglycemia, unspecified whether rat exterminator insulin use (Primary Dx) Social History Tobacco Use Types Packs/Day Years Used Date Smoking Tobacco: Never Assessed Comments Unknown Sex and Gender Information Value Date Recorded Sex Assigned at Not on file Legal Sex Female 9:53 PM EDT Gender Identity Not on file Sexual Orientation Not on file documented as of this encounter Plan of Treatment Not on file documented as of this encounter Results * (ABNORMAL) CBC and differential (05/04/2018 1:27 PM EDT) WBC 7.91 3.40 - 11.20 K/uL [facility] RBC 3.90 3.80 - 4.80 M/uL [facility] HGB 10.8(L) 12.0 - 15.0 g/dL [facility] HCT 33.4(L) 36.0 - 46.0 % [facility] PLT 253 130 - 400 K/uL [facility] MCV 85.6 79.0 - 98.0 fL [facility] MCH 27.7 27.0 - 34.8 pg [facility] MCHC 32.3 31.5 - 36.0 g/dL [facility] RDW 14.0 10.8 - 14.6 % [facility] MPV 10.6 9.4 - 12.4 fl [facility] NRBC 0.00 /100 WBCs [facility] ABSOLUTE NRBC 0.00 K/uL [facility] DIFF METHOD Auto [facility] NEUTS 63.6 45.30 - 77.70 % [facility] LYMPHS 25.2 12.30 - 39.70 % [facility] MONOS 5.3 4.10 - 12.80 % [facility] EOS 4.7 0 - 7.2 % [facility] BASOS 0.8 0 - 2.80 % [facility] Granulocytes, immature (%) 0.4 0.0 - 0.9 % [facility] ABSOLUTE NEUTS 5.04 1.40 - 7.70 K/uL [facility] ABSOLUTE LYMPHS 1.99 0.60 - 3.20 K/uL [facility] ABSOLUTE MONOS 0.42 0.11 - 0.59 K/uL [facility] ABSOLUTE EOS 0.37 0.01 - 0.50 K/uL [facility] ABSOLUTE BASOS 0.06 0.00 - 0.08 K/uL [facility] Granulocytes, immature 0.03 0.00 - 0.05 K/uL [facility] Blood 05/04/2018 1:27 PM EDT 05/04/2018 1:31 PM EDT us Pilar Hopson [facility] ORDER[facility] F inal Result [address] [address] * (ABNORMAL) Hemoglobin A1c (05/04/2018 1:27 PM EDT) HEMOGLOBIN A1C 6.6(H) 4.3 - 5.8 % [facility] Blood 05/04/2018 1:27 PM EDT 05/04/2018 1:31 PM EDT Pilar Hopson HEALTH COORDINATOR LAB BLOOD ORDERABLES F inal Result [facility] [address] [place] [address] documented in this encounter Visit Diagnoses Diagnosis Type 2 diabetes mellitus with hyperglycemia, unspecified whether jail insulin use- Primary documented in this encounter Care Teams Field Service Manager Relationship Specialty Start Date End Date Pilar Hopson CNP 14 [facility] [address] [place] [id number] PCP - General 06/15/17 07/19/20 Pcp, Unknown PCP - General 07/20/20 Clark Madison MD [address] [place] [address] [address] [place] [address] [email or web address] Insurance Assigned Provider 09/02/17 documented as of this encounter Additional Source Comments The information contained in this document represents components of the legal health record. It is not the complete legal health record.[facility]
--- OUTSIDE RECORDS SUMMARY | 2025-04-24 13:23 | XMS_ITS | Clinical Summary ---
Author Organization [facility] [address] [facility] Address [address] [place] [address] Phone Care Team Providers Care Trimmer Press Clippings Name Role Phone Nicholas Bustamante MD Primary [...] not crush, chew, or split. 90 each 11/08/19 25 Active folic acid (FOLVITE) 400 mcg tablet Take 1 tablet (400 mcg total) by mouth 1 (one) time each day. 90 each 11/08/19 25 Active cholecalciferol (VITAMIN D-3) 25 [...] total) by mouth at bedtime. 90 each 11/08/19 25 Active omega-3 acid ethyl esters [...] 1 (one) time each day. 90 each 03/13/20 25 Active potassium chloride (KLOR-CON M20) 20 mEq [...] NAUSEA 30 tablet 5 03/26/20 25 Active spironolactone (Aldactone) 25 mg tabletIndicatio ns:Primary hypertension Take 0.5 tablets (12.5 mg total) by mouth 1 (one) time each day. 45 each 1 04/10/20 25 026 Active nicotine (NICODERM CQ) 7 mg/24 hrIndications:T obacco use disorder Place 1 patch on the skin 1 (one) time each day at the same time. 30 each 04/10/20 25 025 Active meclizine (ANTIVERT) 12.5 mg tablet TAKE 1 TABLET (12.5 MG TOTAL) BY MOUTH IF NEEDED FOR DIZZINESS OR NAUSEA. 30 tablet 2 12/31/19 25 025 Discontinued spironolactone (Aldactone) 25 mg tabletIndicatio ns:Primary hypertension Take 0.5 tablets (12.5 mg total) by mouth 1 (one) time each day. 15 each 03/13/20 25 025 Discontinued(R eorder) Active Problems Problem [...] 2 diabetes mellitus wit h peripheral neuropathy ([facility] V24, [facility] V28) 05/30/2024 Assessment & Plan (03/13/2025 12:00 PM EDT): Well-controlled with lifestyle management. Due for A1c which is ordered Due for DM eye exam and is referred Orders: Hemoglobin A1c; Future Hm Diabetes Foot Exam Ambulatory referral to Ophthalmology; Future Pituitary adenoma ([facility] V24, [facility] V28) 10/2023 Overview (05/30/2024): Last Assessment & Plan: I reviewed this information in detail with Ms. Tolliver using a brain model. She has known about the pituitary tumor for 40 years and has never had symptoms of hormonal dysfunction. Her report now is of occasional blurry vision when reading but her child development instructor states that her reading glasses are the [...] for comparison. Hypertension 05/30/2024 Assessment & Plan (04/10/2025 2:34 PM EDT): Well controlled Continue spironolactone 12.5 mg daily, lisinopril 40 mg daily, amlodipine 10mg daily She has a hx of hypokalemia. On kdur 20 meQ daily. She will stop by the lab for repeat BMP today. Will likely discontinue the Kdur if labs show resolved hypokalemia Orders: spironolactone (Aldactone) 25 mg tablet; Take 0.5 tablets (12.5 mg total) by mouth 1 (one) time each day. Assessment & Plan (03/13/2025 12:00 PM EDT): [...] Tobacco use disorder 05/30/2024 Assessment & Plan (04/10/2025 2:34 PM EDT): Congratulated on smoking cessation She is prescribed nicotine patch to help with her nicotine cravings Orders: nicotine (NICODERM CQ) 7 mg/24 hr; Place 1 patch on the skin 1 (one) time each day at the same time. Assessment & Plan (03/13/2025 12:00 PM EDT): [...] Vertigo 05/26/2023 Diabetes mellitus with nephr opathy ([facility] V24, [facility] V28) 05/17/2017 Overview (05/30/2024): Microalbuminuria CKD stage 3b, GFR 30-44 ml/min ([facility] V24, [facility] V28) 05/17/2017 Assessment & Plan (03/13/2025 12:00 PM EDT): Due for updated labs which are ordered. Continue nephrology follow-up Orders: Comprehensive metabolic panel; Future Encounters Date Type Department Care Team Description 04/10/2025 1:30 PM EDT Office Visit Adult Medicine [address] [phone] Nicholas Bustamante MD Primary hypertension (Primary Dx); Tobacco use disorder 03/19/2025 Telephone Adult Medicine [address] [phone] Malia Menezes RN 03/13/2025 11:00 AM EDT Office Visit Adult [address] [phone] Nicholas Bustamante MD Primary hypertension (Primary Dx); CKD stage 3b, GFR 30-44 ml/min ([facility] V24, [facility] V28); Type 2 diabetes mellitus with peripheral neuropathy ([facility] V24, [facility] V28); History of CVA (cerebrovascular accident); Tobacco use disorder; Mixed hyperlipidemia; Gastroesophageal reflux disease without esophagitis; Anxiety and depression; Chronic gout without tophus, unspecified cause, unspecified site; Vitamin D deficiency; Lumbar back pain; Arthritis of right hand 01/22/2025 Telephone Adult Medicine [address] [phone] Terri Galindo MA from Last 3 Months Immunizations Name Administration Dates Next Due COVID-19 (Moderna/Spikevax) 12yo and older 03/01/2024 Hepatitis B Pediatric (Enger ix B; Recombivax HB) to less than 20 yo 08/02/2004,04/29/2004,01/23/2004 Influenza Quadravalent, 0.5m l (Fluzone High-dose) 65yo and older 05/29/2024 Influenza Quadravalent, MDCK , 0.5ml, preservative free (Flucelvax) 6mo and older 05/08/2018 Influenza Quadravalent, MDCK , 0.5ml, with preservative (Flucelvax) 6mo and older 05/15/2017 Influenza Quadrivalent, with preservative (Fluzone; Afluria) 6mo and older 06/02/2019 Influenza trivalent, 0.5mL ( Fluad) 65yo and older 05/29/2024 Influenza trivalent, 0.5mL ( Fluzone High-dose) 65yo and older 04/13/2025,05/26/2023 Influenza trivalent, 0.5mL, preservative free (Fluarix; FluLaval; Fluzone) ages 6mo and older (Afluria) 3 years and older 07/07/2016,06/19/2008 Influenza trivalent, with pr eservative (Fluzone; Afluria) 6mo and older 06/02/2014 MMR, measles mumps and rubel la Live (Priorix; M-M-R II) 12mo and older 01/20/2004 Moderna SARS-CoV-2 COVID-19, mRNA, LNP-S, preservative free 03/01/2024 PPD Test 07/25/2016,06/19/2008 Pfizer Covid-19 Bivalent, Or iginal + Ba.1 (Non-US Trademark COMIRNATAtlantium Bivalent) 08/15/2022 Pfizer SARS-CoV-2 COVID-19, mRNA, LNP-S, preservative free 12/13/2021,06/12/2021,12/09/2020,11/20 Pneumococcal conjugate 20 va lent (Prevnar 20, PCV 20) 2mo and older 05/26/2023 Pneumococcal polysaccharide 23 valent (Pneumovax 23) 2yo and older 11/23/2017 RSV, bivalent, protein subun it RSVpreF, 0.5mL, Preservative Free (ABRYSVO) 60yo and older or 32 through 36 wks of 06/02/2024 Respiratory syncytial virus (RSV), unspecified 06/02/2024 Tdap Tetanus diptheria acell ular pertussis (Boostrix; Adacel) 7yo and older 05/26/2023,06/02/2014,01/20/2004 Zoster recombinant (Shingrix ) 19yo and older 06/04/2023,02/21/2018,11/23/2017 influenza Split Preservative Free ID 06/06/2013 Surgical History Surgery Date Site/Laterality Comments TOTAL KNEE ARTHROPLASTY 2009 Bilateral PROCEDURE: [place] ARTHRP KNE CONDYLE&PLATU MEDIAL&LAT COMPARTMENTS Medical History Medical History Date Comments Type 2 diabetes mellitus wit h peripheral neuropathy ([facility] V24, [facility] V28) DX:Type 2 diabetes mellitus with peripheral neuropathy (HCC) Pituitary adenoma ([facility] V 24, [facility] V28) DX:Pituitary adenoma (HCC) Hypertension DX:Hypertension Lumbar back pain DX:Lumbar back pain; COMMENT: Workrelated injury, on disability for DJD Gout DX:Gout Depression DX:Depression Diabetes mellitus with nephr opathy ([facility] V24, [facility] V28) 05/17/2017 DX:Diabetes mellitus with n ephropathy ([facility]); COMMENT: Microalbuminuria Chronic renal insufficiency, stage I 05/17/2017 DX:Chronic renal insufficiency, stage I Family History Medical History Relation Name Comments Coronary artery disease Father OR Breast cancer Mother Coronary artery disease Sister 1 OR Arthritis Sister 2 Hands Relation Name Status [...] Sign Reading Time Taken Comments Blood Pressure 132/70 04/10/2025 1:53 PM EDT Pulse 62 04/10/2025 1:53 PM EDT Temperature 36.6 C (97.8 F) 04/10/2025 1:53 PM EDT Respiratory Rate 16 04/10/2025 1:53 PM EDT Oxygen Saturation 98% 11/07/2024 10:26 AM EDT Inhaled Oxygen Concentration - - Weight 74.4 kg (164 lb) 04/10/2025 1:53 PM EDT Height 152.4 cm (5') 04/10/2025 1:53 PM EDT Body Mass Index 32.03 04/10/2025 1:53 PM EDT Plan of Treatment Upcoming Encounters Date Type Department Care Team (Late st Contact Info) Description 05/06/2025 9:30 AM EDT Office Visit Endocrinology - [address] [phone] Jaylene Magaña PA [address] [place] [address] 06/12/2025 1:45 PM EDT Office Visit Nephrology - [address] [phone] Beto Gonzalez MD [address] [place] [address] [phone] 08/14/2025 1:30 PM EST Office Visit [place] Medicine [place] - [address] [phone] Nicholas Bustamante MD [address] [place] [phone] Health Maintenance Due Date Last Done Comments Social Influencers of Health Screening 10/01/2023 Depression Screening 08/28/2024 09/25/2023 Falls Risk Assessment 09/25/2024 09/25/2023 Medicare Annual Wellness Visit 09/25/2024 09/25/2023 COVID-19 Vaccine (8 - Pfizer risk 2024-) 04/16/2025 10/17/2024, 03/01/2024, 03/01/2024, Additional history exists Diabetes: Blood Sugar Control Test (HGBA1C) 09/18/2025 03/18/2025, 04/11/2024, 04/11/2024, Additional history exists Diabetes: Annual Urine Albumin-Creatinine Ratio (uACR) 10/10/2025 10/10/2024, 12/28/2023, 05/04/2018 Diabetes: Annual Foot Exam 03/13/2026 03/13/2025, Diabetes: Annual Retina Eye Exam 04/03/2026 04/03/2025, 08/03/2023 Diabetes: Annual GFR (Glomerular Filtration Rate) 04/10/2026 04/10/2025, 03/18/2025, 10/10/2024, Additional history exists Hypertension/CHF/CAD Annual BMP Blood Test 04/10/2026 04/10/2025, 03/18/2025, 10/10/2024, Additional history exists Breast Cancer Screening 09/27/2026 [...] 01/27, 11/23/2017 RSV Immunization Adult Patients Completed 06/02/2024, 06/02/2024 RSV Immunization Patients Under 20 months Aged Out 06/02/2024 No longer eligible based on patient's age to complete this topic Influenza Vaccine Completed 04/13/2025, , 05/29/2024, Additional history exists HIB Vaccines Aged Out No longer eligi [...] Procedure Name Priority Date/Time Associated Diagnosis Comments BASIC METABOLIC PANEL Routine 04/10/2025 2:43 PM EDT Hypokalemia EXTERNAL DIABETIC RETINA EYE EXAM 04/03/2025 HEMOGLOBIN A1C Routine 03/18/2025 10:10 AM EDT Type 2 diabetes mellitus with peripheral neuropathy ([facility] V24, [facility]/H[facility] V28) COMPREHENSIVE METABOLIC PANEL Routine 03/18/2025 10:10 AM EDT CKD stage 3b, GFR 30-44 ml/min ([facility]/HCC V24, [facility]/HCC V28) LIPID PANEL WITH REFLEX TO DIRECT [...] Relevant to Health Maintenance Results * (ABNORMAL) Basic metabolic panel (04/10/2025 2:43 PM EDT) Sodium 140 133 - 145 mmol/L LAB CHEMISTRY METHOD 04/10/2025 5:15 PM [facility] Potassium 4.6 3.5 - 5.5 mmol/L LAB CHEMISTRY METHOD 04/10/2025 5:15 PM [facility] Chloride 107 96 - 110 mmol/L LAB CHEMISTRY METHOD 04/10/2025 5:15 PM [facility] CO2 28 21 - 32 mmol/L LAB CHEMISTRY METHOD 04/10/2025 5:15 PM [facility] Anion Gap 5 3 - 11 LAB CHEMISTRY METHOD 04/10/2025 5:15 PM [facility] Glucose 78 70 - 100 mg/dL LAB CHEMISTRY METHOD 04/10/2025 5:15 PM [facility] BUN 32(H) 5 - 25 mg/dL LAB CHEMISTRY METHOD 04/10/2025 5:15 PM [facility] Creatinine 1.25(H) 0.50 - 1.10 mg/dL LAB CHEMISTRY METHOD 04/10/2025 5:15 PM [facility] eGFR 47(L) >=60 mL/min/1. 73m2 LAB CHEMISTRY METHOD 04/10/2025 5:15 PM EDT [facility] Comment:Calculation based on the Chronic Kidney Disease Epidemiology Collaboration (CKD-EPI) equation refit without adjustment for race. BUN/Creatinine Ratio 25.6 LAB CHEMISTRY METHOD 04/10/2025 5:15 PM EDT [facility] Calcium 9.2 8.5 - 10.5 mg/dL LAB CHEMISTRY METHOD 04/10/2025 5:15 PM EDT [facility] Blood Venous blood specimen / Unknown Venipuncture / Unknown 04/10/2025 2:43 PM EDT 04/10/2025 2:43 PM EDT Nicholas Bustamante MD LAB BLOOD ORDERA BLES Final Result [facility] [address] [place] [address], [place] [phone] * External Diabetic Retina Eye Exam Report (04/03/2025) Anatomical Region Laterality Modality Ultrasound us Provider [facility] US PROCEDURES Final Result * Lipid panel with reflex to direct LDL (03/18/2025 10:10 AM EDT) Cholesterol 131 0 - 200 mg/dL LAB CHEMISTRY METHOD 03/18/2025 2:36 PM EDT [facility] Triglycerides 109 0 - 150 mg/dL LAB CHEMISTRY METHOD 03/18/2025 2:36 PM EDT [facility] HDL 66 >=40 mg/dL LAB CHEMISTRY METHOD 03/18/2025 2:36 PM EDT [facility] LDL Calculated 43 0 - 100 mg/dL LAB CHEMISTRY METHOD 03/18/2025 2:36 PM EDT [facility] VLDL Cholesterol Balta 21.8 mg/dL LAB CHEMISTRY METHOD 03/18/2025 2:36 PM EDT [facility] Non HDL Chol. (LDL+VLDL) 65 <145 mg/dL LAB CHEMISTRY METHOD 03/18/2025 2:36 PM EDT [facility] Chol/HDL Ratio 2.0 0.0 - 4.4 LAB CHEMISTRY METHOD 03/18/2025 2:36 PM EDT [facility] Blood Venous blood specimen / Unknown Venipuncture / Unknown 03/18/2025 10:10 AM EDT 03/18/2025 10:10 AM EDT Nicholas Bustamante MD LAB BLOOD ORDERA BLES Final Result Performing Organization Address [facility]/ZIP Co de Phone Number [facility] [address] [place] [address], [place] [phone] * Uric acid (03/18/2025 10:10 AM EDT) Uric Acid 4.9 3.1 - 7.8 mg/dL LAB CHEMISTRY METHOD 03/18/2025 2:36 PM EDT [facility] Blood Venous blood specimen / Unknown Venipuncture / Unknown 03/18/2025 10:10 AM EDT 03/18/2025 10:10 AM EDT Nicholas Bustamante MD LAB BLOOD ORDERA BLES Final Result [facility] [address] [place] [address], [place] [phone] * Hemoglobin A1c (03/18/2025 10:10 AM EDT) Hemoglobin A1C 5.9 <6.5 % LAB CHEMISTRY METHOD 03/18/2025 6:00 PM EDT [facility] Mean Bld Glu Estim. 123 mg/dL LAB CHEMISTRY METHOD 03/18/2025 6:00 PM EDT [facility] Blood Venous blood specimen / Unknown Venipuncture / Unknown 03/18/2025 10:10 AM EDT 03/18/2025 10:10 AM EDT Nicholas Bustamante MD LAB BLOOD ORDERA BLES Final Result [facility] [address] [place] [address], [place] [phone] * (ABNORMAL) Comprehensive metabolic panel (03/18/2025 10:10 AM EDT) Sodium 142 133 - 145 mmol/L LAB CHEMISTRY METHOD 03/18/2025 2:54 PM [facility] Potassium 3.3(L) 3.5 - 5.5 mmol/L LAB CHEMISTRY METHOD 03/18/2025 2:54 PM [facility] Chloride 109 96 - 110 mmol/L LAB CHEMISTRY METHOD 03/18/2025 2:54 PM [facility] CO2 24 21 - 32 mmol/L LAB CHEMISTRY METHOD 03/18/2025 2:54 PM [facility] Anion Gap 9 3 - 11 LAB CHEMISTRY METHOD 03/18/2025 2:54 PM [facility] Glucose 94 70 - 100 mg/dL LAB CHEMISTRY METHOD 03/18/2025 2:54 PM T [facility] BUN 23 5 - 25 mg/dL LAB CHEMISTRY METHOD 03/18/2025 2:54 PM [facility] Creatinine 1.31(H) 0.50 - 1.10 mg/dL LAB CHEMISTRY METHOD 03/18/2025 2:54 PM [facility] eGFR 44(L) >=60 mL/min/1. 73m2 LAB CHEMISTRY METHOD 03/18/2025 2:54 PM [facility] Comment:Calculation based on the Chronic Kidney Disease Epidemiology Collaboration (CKD-EPI) equation refit without adjustment for race. BUN/Creatinine Ratio 17.6 LAB CHEMISTRY METHOD 03/18/2025 2:54 PM EDT [facility] Calcium 9.1 8.5 - 10.5 mg/dL LAB CHEMISTRY METHOD 03/18/2025 2:54 PM EDT [facility] AST (SGOT) 19 10 - 42 unit/L LAB CHEMISTRY METHOD 03/18/2025 2:54 PM EDT [facility] ALT (SGPT) 21 10 - 60 unit/L LAB CHEMISTRY METHOD 03/18/2025 2:54 PM EDT [facility] Alkaline Phosphatase 94 42 - 121 unit/L LAB CHEMISTRY METHOD 03/18/2025 2:54 PM T [facility] Total Protein 7.3 6.0 - 8.0 g/dL LAB CHEMISTRY METHOD 03/18/2025 2:54 PM EDT [facility] Albumin 3.8 3.2 - 5.0 g/dL LAB CHEMISTRY METHOD 03/18/2025 2:54 PM EDT [facility] Total Bilirubin 0.4 0.0 - 1.4 mg/dL LAB CHEMISTRY METHOD 03/18/2025 2:54 PM T [facility] Blood Venous blood specimen / Unknown Venipuncture / Unknown 03/18/2025 10:10 AM EDT 03/18/2025 10:10 AM EDT us Nicholas Bustamante MD LAB BLOOD ORDERA BLES Final Result [facility] [address] [place] [address], [place] [phone] * (ABNORMAL) Microalbumin creatinine urine ratio (10/10/2024 2:21 PM EST) Creatinine, Urine 268.0 mg/dL LAB CHEMISTRY METHOD 10/10/2024 5:39 PM EST [facility] Microalb, Ur 222.0(H) 0.0 - 29.0 mg/L LAB CHEMISTRY METHOD 10/10/2024 5:39 PM EST [facility] Microalb/Crea t Ratio 83(H) <30 mg/g creat LAB CHEMISTRY METHOD 10/10/2024 5:39 PM EST [facility] Urine Urine specimen obtained by clean catch procedure / Unknown Non-blood Collection / Unknown 10/10/2024 2:21 PM EST 10/10/2024 2:21 PM EST Beto Gonzalez MD LAB URINE ORDERABLES Final Res ult [facility] [address] [place] [address], * MG Mammo Digital Screening w Indra bilat (09/27/2024 10:07 AM EST) Anatomical Region Laterality Modality Breast Bilateral Mammography 09/27/2024 10:2 5 AM EST Impressions 09/27/2024 11:25 AM EST Benign. BI-RADS CATEGORY: 1 - NEGATIVE RECOMMENDATION: Screening bilateral mammogram is recommended in 1 year. Mammo Location: [facility], [address] [place] [address], [phone], . -------- FINAL REPORT -------- Dictated By: Alisha Collier Dictated Date: 09/27/2024 10:25 ET Assigned Physician: Alisha Collier Reviewed and Electronically Signed By: Alisha Collier Signed Date: 09/27/2024 11:25 ET Workstation ID: [id number] Transcribed By: Self Edit Transcribed Date: 09/27/2024 [...] areas of fibroglandular density. Procedure Note Alisha Collire MD - 09/27/2024 CLINICAL: 69 years old, [...] is recommended in 1 year. Mammo Location: [facility], [address] [place] [address], [phone], . -------- FINAL REPORT -------- Dictated By: Alisha Collier Dictated Date: 09/27/2024 10:25 ET Assigned Physician: Alisha Collier Reviewed and Electronically Signed By: Alisha Collier Signed Date: 09/27/2024 11:25 ET Workstation ID: [id number] Transcribed By: Self Edit Transcribed Date: 09/27/2024 11:05 ET Nicholas Bustamante MD [facility] BI PROCEDURE S Final Result * Falls Risk Assessment (09/25/2023) Falls Risk Assessment abstracted Historical Provider [facility] Final Result * Depression Screening (09/25/2023) Pathologist [facility] Depression Screening abstracted Historical Provider HEALTH MAINTENANCE Final Result * Diabetes Foot Exam (09/25/2023) Pathologist [facility] Diabetes: Annual Foot Exam abstracted us Historical Provider HEALTH MAINTENANCE Final Result * [...] spine and left hip were obtained using [employer] Discovery W (S/N [id number]). COMPARISON: None FINDINGS: L1-L4 BMD: 0.971 g/cm2 [...] lumbar spineand left hip were obtained using [employer] Discovery W (S/N [id number]). COMPARISON: None FINDINGS: L1-L4 BMD: 0.971 g/cm2 [...] below -2.5 SD Osteoporosis Nicholas Bustamante MD [facility] DXA PROCEDUR ES Final Result * Hepatitis C Screening (05/26/2023) Pathologist [facility] Hepatitis C Screening abstracted Historical Provider HEALTH MAINTENANCE Final Result * Colonoscopy (12/30/2021) Pathologist [facility] Colonoscopy abstracted, no interpretation Anatomical Region Laterality Modality Other Historical Provider HEALTH MAINTENANCE Final Result from Last 3 Months or Most Recently Relevant to Health Maintenance Insurance MEDICARE [place]ICAID [place] Care Teams Trimmer Press Clippings Relationship Specialty Start Date End Date Nicholas Bustamante MD [address] [place] [id number] PCP - General 12/30/22
--- OUTSIDE RECORDS SUMMARY | 2025-04-24 13:23 | XMS_ITS | Encounter Summary ---
Author Organization [facility] Address [address] [facility] [address] [place] [phone] Phone Care Team Providers Care Cloth Bin Packer Name Role Phone Pilar Hopson CNP Primary Care Provider Lulu Welch Unavailable [phone] Clark Madison MD Unavailable [phone] Pcp, Unknown Primary Care Provider Unavailabl e Encounter Details Date Type Department Care Team (Late st Contact Info) Description 08/14/2017 Ancillary Orders Non-Invasive Cardiology [address] [place] [address] Pilar Hopson, NEGRITO [address] [facility] [address] [place] [address] [email or web address] Dyspnea on exertion Social History Tobacco Use [...] documented as of this encounter Results * NC Stress Result for Nuclear Stress Test (NWH) (08/14/2017 12:10 PM EST) Max BP Systolic 180 mmHg [facility] Max BP Diastolic 70 mmHg [facility] Max HR 144 BPM [facility] Resting HR 78 BPM [facility] Resting BP Systolic 120 mmHg [facility] Resting BP Diastolic 84 mmHg [facility] Peak METS 5.2 METS [facility] Peak HR 144 BPM [facility] Anatomical Region Laterality Modality Heart Other 08/14/2017 11:4 9 AM EST 08/14/2017 12:09 PM EST Narrative 08/14/2017 12:16 PM EST Stress Test Result A stress test was performed following a modified Maurisio protocol. The heart rate changed from 78 bpm at rest to 144 bpm at peak stress. The blood pressure changed from 120/84 mmHg at rest. The patient's functional capacity is 5.2 METS. Pt exercised for 4:19 minutes on a MAURISIO protocol achieving 5.2 METS. Test terminated due to fatigue. Max heart rate 144 (90% MPHR). 1. Baseline EKG showed NSR with RBBB. No ischemic EKG changes with exercise. 2. No chest pain. 3. Normal BP response to exercise. Poor functional capacity for age. 4. No ectopy. Conclusion - normal stress test. Nuclear images pending and will be reported separately. Alba Jackson [employer] MANAGER with Dr Pennington us Clark Madison MD CV NM CARDIAC Final Result documented in this encounter Visit Diagnoses Diagnosis Dyspnea on exertion Other dyspnea and respiratory abnormality Dyspnea on exertion Other dyspnea and respiratory abnormality documented in this encounter Care Teams Cloth Bin Packer Relationship Specialty Start Date End Date Pilar Hopson CNP [address] [facility] [address] [place] [phone] [email or web address] PCP - General 06/15/17 07/19/20 Pcp, Unknown PCP - General 07/20/20 Lulu Welch [address] [facility] [address] [place] [phone] [email or web address] 06/21/1712/27 Clark Madison MD [address] [facility] [address] [place] [phone] [email or web address] Insurance Assigned Provider 09/02/17 documented as of this encounter Additional Source Comments The information contained in this document represents components of the legal health record. It is not the complete legal health record.[facility]
== END 2025-04-24 12:48 | disposition home or self-care (01) ==
LOC: HO.HMGCX 12:47
PROVIDERS: PCP Family Medicine; Visit Provider Psychiatry & Neurology Neurology
DX: I65.23 Occlusion and stenosis of bilateral carotid arteries (principal); I63.9 Cerebral infarction, unspecified
CPT/HCPCS: 93880

== ENCOUNTER → 2025-04-24 12:51 | Outpatient (BNV) | payer MEDICARE, MEDICAID, SELFPAY | PROVIDERS: PCP Family Medicine; Visit Provider Radiology Vascular & Interventional Radiology | DX: I65.23 Occlusion and stenosis of bilateral carotid arteries (principal) | CPT/HCPCS: 93880 ==